=== PATIENT | male | born 1930 | race Caucasian/White ===

== ENCOUNTER 2016-04-12 17:50 | Inpatient (IN) | payer MEDICARE, OTHER ==
[2016-04-12] MEDS ORDERED: Sodium Chloride 0.9% 1,000 ML IV SCH (19:15)
--- NOTE | 2016-04-12 22:22 | EDM.PDOC ---
ED HPI GENERAL MEDICAL PROBLEM - General Chief Complaint: General Stated Complaint: MEDICAL VIA [facility] Time Seen by Provider: 04/12/16 18:05 Source of Information: Reports: Patient History Limitations: Reports: No limitations - History of Present Illness INITIAL COMMENTS - FREE TEXT/NARRATIVE: History of present illness: [85-year-old male presenting with complaints of generalized weakness that began at 4:00 this morning when he got up to go to the bathroom. He noted that he had to hang onto the wall to steady himself to get back to bed. This problem of weakness has persisted throughout the day. He was sleeping in a recliner this afternoon and his states that he awoke with a start and was tremulous for a while and then had garbled speech and some confusion and then that cleared. He now presents with generalized weakness. He feels like his blood sugars been running low but he's checked it several times and it is not. He is on insulin. He has had no fevers chills sweats cough or cold symptoms no shortness of breath or chest pain no nausea vomiting diarrhea but does occasionally have trouble with constipation] Review of systems: As per history of present illness and below otherwise all systems reviewed and negative. Past medical history: As per history of present illness and as reviewed below otherwise noncontributory. Surgical history: As per history of present illness and as reviewed below otherwise noncontributory. Social history: No reported history of drug or alcohol abuse. Family history: As per history of present illness and as reviewed below otherwise noncontributory. Physical exam: HEENT: Atraumatic, normocephalic, pupils reactive, negative for conjunctival pallor or scleral icterus, mucous membranes moist, throat clear, neck supple, nontender, trachea midline. Lungs: Some crackles in the bases with fair air exchange Heart: S1S2, regular, Abdomen: Soft, nondistended, nontender. Negative for masses or hepatosplenomegaly. Negative for costovertebral tenderness. Pelvis: Stable nontender. Genitourinary: Deferred. Rectal: Deferred. Extremities: Atraumatic, negative for cords or calf pain. Neurovascular unremarkable. Neuro: Awake, alert, oriented. Cranial nerves II through XII unremarkable. I did have the patient stand and walk and he is extremely unsteady and has a tendency to fall to the left. He reports sensation of generalized weakness like he is going to collapse when he tries to walk. Diagnostics: [CBC complete metabolic panel 2 sets of troponins BNP chest x-ray head CT 2 EKGs TSH CRP and lactic acid were all done nothing clear significance to explain his symptomatology was found. His white count is a little elevated his B. and P. is over 1000 chest x-ray shows cardiomegaly his troponins were negative his EKG may show slight J-point elevation of the v5 and v6. His head CT was unremarkable his creatinine has crept from 1.7-2.0 his BUN is 54.] Therapeutics: [IV fluids] Impression: [Generalized weakness and unsteadiness of uncertain etiology] Plan: [Dr Fox is coming in to see him] Definitive disposition and diagnosis as appropriate pending reevaluation and review of above. - Related Data Allergies Allergy/AdvReac Type Severity Reaction Status Date / Time candesartan Allergy Cannot Verified 04/12/16 17:59 Remember finasteride Allergy Cannot Verified 04/12/16 17:59 Remember lisinopril Allergy Confusion Verified 04/12/16 17:59 Kosbugd-Ayj-Wyc Reductase Allergy Chest Verified 04/12/16 17:59 Inhibitor Tightness aspirin AdvReac Bleeding Verified 04/12/16 17:59 Home Meds: Home Meds Allopurinol [Zyloprim] 300 mg PO DAILY 06/01/14 [History] Colchicine 0.6 mg PO BID 06/01/14 [History] Gabapentin [Neurontin] 400 mg PO TID 06/01/14 [History] Metoprolol Tartrate [Lopressor] 200 mg PO BEDTIME 06/01/14 [History] Omeprazole [Prilosec] 20 mg PO DAILY 06/01/14 [History] Hypromellose [Artificial Tears] 1 drop EYEBOTH QID 06/03/14 [History] Insulin Aspart [Novolog Flexpen] 10 unit SQ BID 06/03/14 [History] Insulin Glarg,Human.Rec.Analog [Lantus] 30 unit SQ BEDTIME 06/03/14 [History] Polyethylene Glycol 8000 [Polyethylene Glycol] 17 gm PO .QOD 06/03/14 [History] amLODIPine Besylate [Amlodipine Besylate] 10 mg PO BEDTIME 06/03/14 [History] traMADol [Ultram] 50 mg PO TID 06/03/14 [History] Budesonide/Formoterol [Symbicort 80-4.5 MCG] 2 puff INH BID 10/11/15 [History] Hydrocortisone [Hydrocortisone 2.5% Crm] 1 applic RECTAL BEDTIME 10/11/15 [ History] Dextrose [Glucose] 4 tab PO DAILY PRN 04/12/16 [History] Past Medical History HEENT History: Reports: Allergic rhinitis, Cataract, Impaired vision, Sinusitis Cardiovascular History: Reports: CAD, High cholesterol, Hypertension, [place], Other (see below) Other Cardiovascular History: left above the knee arterial stenosis Respiratory History: Reports: Bronchitis, recurrent, Pneumonia, recurrent, Sleep apnea, Other (see below) Other Respiratory History: chronic cough Gastrointestinal History: Reports: GERD, Other (see below) Other Gastrointestinal History: umbilical hernia Genitourinary History: Reports: Prostate disorder, Renal calculus Musculoskeletal History: Reports: Back pain, chronic, Fracture, Gout, Osteoarthritis Other Neuro History: neck fracture Endocrine/Metabolic History: Reports: Diabetes, type II, Obesity/BMI 30+ Hematologic History: Reports: Blood transfusion(s), Other (see below) Other Hematologic History: chronic leucytic leukemia, chronic lymes Oncologic (Cancer) History: Reports: Basal cell carcinoma, Other (see below) Other Oncologic History: leukemia - Past Surgical History HEENT Surgical History: Reports: Oral surgery Cardiovascular Surgical History: Reports: Coronary artery bypass GI Surgical History: Reports: Appendectomy, Colonoscopy, EGD Male Surgical History: Reports: Lithotripsy (ESWL), TURP-Transurethral resection of prostate, Other (see below) Other Male Surgeries/Procedures: kidney biopsy Social & Family History - Tobacco Use Smoking Status *Q: Never Smoker Second Hand Smoke Exposure: No - Alcohol Use Days Per Week of Alcohol Use: 0 - Recreational Drug Use Recreational Drug Use: No ED ROS GENERAL - Review of Systems Review Of Systems: ROS reveals no pertinent complaints other than HPI. ED EXAM, GENERAL - Physical Exam Exam: See Below Course - Vital Signs Last Recorded V/S: Last Vital Signs Temp 36.4 C 04/12/16 17:56 Pulse 99 04/12/16 21:35 Resp 21 H 04/12/16 21:35 BP 163/90 H 04/12/16 21:35 Pulse Ox 95 04/12/16 21:35 - Orders/Labs/Meds Orders: Active Orders 24 hr Category Date Time Status EKG Documentation Completion [RC] ASDIRECTED Care 04/12/16 18:18 Active EKG Documentation Completion [RC] ASDIRECTED Care 04/12/16 20:46 Active Chest 1V Frontal [CR] Stat Exams 04/12/16 18:48 Taken Head wo Cont [CT] Stat Exams 04/12/16 18:15 Taken Sodium Chloride 0.9% [Normal Saline] 1,000 ml Med 04/12/16 19:15 Active IV ASDIRECTED EKG 12 Lead [EK] Routine Ther 04/12/16 18:17 Ordered EKG 12 Lead [EK] Stat Ther 04/12/16 20:46 Ordered Medication Orders Sodium Chloride (Normal Saline) 1,000 mls @ 500 mls/hr IV ASDIRECTED IRVING Last Admin: 04/12/16 20:18 Dose: 500 mls/hr Labs: Laboratory Tests 04/12/16 04/12/16 04/12/16 Range/Units 18:09 18:09 19:23 WBC 12.6 H (4.5-11.0) K/uL RBC 4.20 L (4.30-5.90) M/uL Hgb 14.1 (12.0-15.0) g/dL Hct 41.4 (40.0-54.0) % MCV 99 H (80-98) fL MCH 34 H (27-31) pg MCHC 34 (32-36) % Plt Count 303 (150-400) K/uL Neut % (Auto) 73 H (36-66) % Lymph % (Auto) 21 L (24-44) % Saline % (Auto) 6 (2-6) % Eos % (Auto) 0 L (2-4) % Baso % (Auto) 0 (0-1) % ABG Hemoglobin (13.5-18.0) g/dL ABG Oxyhemoglobin % ABG Carboxyhemoglobin (0.0-1.6) % ABG Methemoglobin % VBG pH (7.350-7.450) VBG pCO2 mm/Hg VBG pO2 mm/Hg VBG HCO3 mmol/L VBG Total CO2 mmol/L VBG O2 Saturation VBG O2 Content %vol VBG Base Excess mm/L O2 Delivery Device Sodium 144 (140-148) mmol/L Potassium 5.4 H (3.6-5.2) mmol/L Chloride 109 H (100-108) mmol/L Carbon Dioxide 25 (21-32) mmol/L Anion Gap 15.4 H (5.0-14.0) mmol/L BUN 42 H (7-18) mg/dL Creatinine 2.0 H (0.8-1.3) mg/dL Est Cr Clr Drug Dosing 28.90 mL/min Estimated GFR (MDRD) 32 L (>60) Glucose 132 H (74-106) mg/dL Lactic Acid (0.4-2.0) mmol/L Calcium 8.5 (8.5-10.1) mg/dL Total Bilirubin 0.3 (0.2-1.0) mg/dL AST 23 (15-37) U/L ALT 25 (12-78) U/L Alkaline Phosphatase 72 (46-116) U/L Troponin I < 0.017 (0.000-0.056) ng/mL C-Reactive Protein (0.0-0.3) mg/dL Rhs-R-Zhokezghjha Pept 1728 H (5-450) pg/mL Total Protein 6.6 (6.4-8.2) g/dL Albumin 3.6 (3.4-5.0) g/dL Globulin 3.0 (2.3-3.5) g/dL Albumin/Globulin Ratio 1.2 (1.2-2.2) TSH, Ultra Sensitive (0.358-3.740) uIU/mL Urine Color Urine Appearance Urine pH (4.5-8.0) Ur Specific [place] (1.008-1.030) Urine Protein (NEGATIVE) mg/dL Urine Glucose (UA) (NEGATIVE) mg/dL Urine Ketones (NEGATIVE) mg/dL Urine Occult Blood (NEGATIVE) Urine Nitrite (NEGAITVE) Urine Bilirubin (NEGATIVE) Urine Urobilinogen (NORMAL) mg/dL Ur Leukocyte Esterase (NEGATIVE) Urine RBC (0-5) Urine WBC (0-5) Ur Epithelial Cells Amorphous Sediment Urine Bacteria Urine Mucus 04/12/16 04/12/16 04/12/16 Range/Units 20:01 20:01 20:02 WBC (4.5-11.0) K/uL RBC (4.30-5.90) M/uL Hgb (12.0-15.0) g/dL Hct (40.0-54.0) % MCV (80-98) fL MCH (27-31) pg MCHC (32-36) % Plt Count (150-400) K/uL Neut % (Auto) (36-66) % Lymph % (Auto) (24-44) % Saline % (Auto) (2-6) % Eos % (Auto) (2-4) % Baso % (Auto) (0-1) % ABG Hemoglobin (13.5-18.0) g/dL ABG Oxyhemoglobin % ABG Carboxyhemoglobin (0.0-1.6) % ABG Methemoglobin % VBG pH (7.350-7.450) VBG pCO2 mm/Hg VBG pO2 mm/Hg VBG HCO3 mmol/L VBG Total CO2 mmol/L VBG O2 Saturation VBG O2 Content %vol VBG Base Excess mm/L O2 Delivery Device Sodium (140-148) mmol/L Potassium (3.6-5.2) mmol/L Chloride (100-108) mmol/L Carbon Dioxide (21-32) mmol/L Anion Gap (5.0-14.0) mmol/L BUN (7-18) mg/dL Creatinine (0.8-1.3) mg/dL Est Cr Clr Drug Dosing mL/min Estimated GFR (MDRD) (>60) Glucose (74-106) mg/dL Lactic Acid 1.9 (0.4-2.0) mmol/L Calcium (8.5-10.1) mg/dL Total Bilirubin (0.2-1.0) mg/dL AST (15-37) U/L ALT (12-78) U/L Alkaline Phosphatase (46-116) U/L Troponin I (0.000-0.056) ng/mL C-Reactive Protein 0.37 H (0.0-0.3) mg/dL Lzk-N-Dvoxmwgdyki Pept (5-450) pg/mL Total Protein (6.4-8.2) g/dL Albumin (3.4-5.0) g/dL Globulin (2.3-3.5) g/dL Albumin/Globulin Ratio (1.2-2.2) TSH, Ultra Sensitive 1.678 (0.358-3.740) uIU/mL Urine Color Urine Appearance Urine pH (4.5-8.0) Ur Specific [place] (1.008-1.030) Urine Protein (NEGATIVE) mg/dL Urine Glucose (UA) (NEGATIVE) mg/dL Urine Ketones (NEGATIVE) mg/dL Urine Occult Blood (NEGATIVE) Urine Nitrite (NEGAITVE) Urine Bilirubin (NEGATIVE) Urine Urobilinogen (NORMAL) mg/dL Ur Leukocyte Esterase (NEGATIVE) Urine RBC (0-5) Urine WBC (0-5) Ur Epithelial Cells Amorphous Sediment Urine Bacteria Urine Mucus 04/12/16 04/12/16 04/12/16 Range/Units 20:20 20:46 21:40 WBC (4.5-11.0) K/uL RBC (4.30-5.90) M/uL Hgb (12.0-15.0) g/dL Hct (40.0-54.0) % MCV (80-98) fL MCH (27-31) pg MCHC (32-36) % Plt Count (150-400) K/uL Neut % (Auto) (36-66) % Lymph % (Auto) (24-44) % Saline % (Auto) (2-6) % Eos % (Auto) (2-4) % Baso % (Auto) (0-1) % ABG Hemoglobin 15.1 (13.5-18.0) g/dL ABG Oxyhemoglobin 91.6 % ABG Carboxyhemoglobin 2.6 H (0.0-1.6) % ABG Methemoglobin 0.6 % VBG pH 7.445 (7.350-7.450) VBG pCO2 29.6 mm/Hg VBG pO2 69.6 mm/Hg VBG HCO3 20.0 mmol/L VBG Total CO2 17.2 mmol/L VBG O2 Saturation 94.6 VBG O2 Content 19.4 %vol VBG Base Excess -2.4 mm/L O2 Delivery Device Room air Sodium (140-148) mmol/L Potassium (3.6-5.2) mmol/L Chloride (100-108) mmol/L Carbon Dioxide (21-32) mmol/L Anion Gap (5.0-14.0) mmol/L BUN (7-18) mg/dL Creatinine (0.8-1.3) mg/dL Est Cr Clr Drug Dosing mL/min Estimated GFR (MDRD) (>60) Glucose (74-106) mg/dL Lactic Acid (0.4-2.0) mmol/L Calcium (8.5-10.1) mg/dL Total Bilirubin (0.2-1.0) mg/dL AST (15-37) U/L ALT (12-78) U/L Alkaline Phosphatase (46-116) U/L Troponin I < 0.017 (0.000-0.056) ng/mL C-Reactive Protein (0.0-0.3) mg/dL Aod-G-Wjzfbxictbm Pept (5-450) pg/mL Total Protein (6.4-8.2) g/dL Albumin (3.4-5.0) g/dL Globulin (2.3-3.5) g/dL Albumin/Globulin Ratio (1.2-2.2) TSH, Ultra Sensitive (0.358-3.740) uIU/mL Urine Color Yellow Urine Appearance Clear Urine pH 6.5 (4.5-8.0) Ur Specific [place] 1.010 (1.008-1.030) Urine Protein 30 H (NEGATIVE) mg/dL Urine Glucose (UA) Normal (NEGATIVE) mg/dL Urine Ketones Negative (NEGATIVE) mg/dL Urine Occult Blood Negative (NEGATIVE) Urine Nitrite Negative (NEGAITVE) Urine Bilirubin Negative (NEGATIVE) Urine Urobilinogen Normal (NORMAL) mg/dL Ur Leukocyte Esterase Negative (NEGATIVE) Urine RBC 0-5 (0-5) Urine WBC 0-5 (0-5) Ur Epithelial Cells Few Amorphous Sediment Few Urine Bacteria Not seen Urine Mucus Few Meds: Medications Generic Name Dose Route Start Last Admin Trade Name Freq PRN Reason Stop Dose Admin Sodium Chloride 1,000 mls @ 500 mls/hr 04/12/16 19:15 04/12/16 20:18 Normal Saline IV 500 mls/hr ASDIRECTED IRVING Administration Departure - Departure Time of Disposition: 22:22 Disposition: Still A Patient 30 Condition: fair Clinical Impression: Generalized weakness Forms: ED Department Discharge - My Orders Last 24 Hours: My Active Orders 04/12/16 18:15 Head wo Cont [CT] Stat 04/12/16 18:17 EKG 12 Lead [EK] Routine 02/24/17 18:18 EKG Documentation Completion [RC] ASDIRECTED 04/12/16 18:48 Chest 1V Frontal [CR] Stat 04/12/16 19:15 Sodium Chloride 0.9% [Normal Saline] 1,000 ml IV ASDIRECTED 04/12/16 20:46 EKG Documentation Completion [RC] ASDIRECTED EKG 12 Lead [EK] Stat - Assessment/Plan Last 24 Hours: My Active Orders 04/12/16 18:15 Head wo Cont [CT] Stat 04/12/16 18:17 EKG 12 Lead [EK] Routine 04/12/16 18:18 EKG Documentation Completion [RC] ASDIRECTED 04/12/16 18:48 Chest 1V Frontal [CR] Stat 04/12/16 19:15 Sodium Chloride 0.9% [Normal Saline] 1,000 ml IV ASDIRECTED 04/12/16 20:46 EKG Documentation Completion [RC] ASDIRECTED EKG 12 Lead [EK] Stat
[2016-04-12] MEDS ORDERED: Ondansetron 4 MG Tab.DIS PO PRN (23:13)
[2016-04-12] MEDS ORDERED: Acetaminophen 325 MG Tab PO PRN (23:13)
[2016-04-12] MEDS ORDERED: Aspirin 81 MG Tab.Chew PO ONE (23:26)
[2016-04-13] MEDS: Insulin Aspart 100 Units/ML 3 ML Pen SUBCUT SCH ×4 (08:43→21:31)
[2016-04-13] MEDS ORDERED: Aspirin 81 MG Tab.EC PO SCH (09:00)
[2016-04-13] MEDS ORDERED: Enoxaparin 40 MG/0.4 ML Syringe SUBCUT SCH (09:00)
[2016-04-13] MEDS: Enoxaparin 30 MG/0.3 ML Syringe SUBCUT SCH (09:26)
--- NOTE | 2016-04-13 10:18 | PCM.HP ---
H&P History of Present Illness - General Date of Service: 04/12/16 Admit Problem/Dx: Admission Diagnosis/Problem Admission Diagnosis/Problem Weakness Generalized weakness and dizziness Source of Information: Patient, EMS, Family History Limitations: Reports: No limitations - History of Present Illness Initial Comments - Free Text/Narative: 85-year-old male with past medical history of hypertension on metoprolol medication, diabetes on Lantus 30 units during the nighttime 10 units Humalog with each meal, gout, peripheral neuropathy, chronic kidney disease came to the ED with the complaint of dizziness and imbalance. As per the patient, he felt dizzy and weakness in bilateral lower extremity in the morning 4 AM associated with disorganized speech. He reports that he felt dizzy when he tried to walk but denies in sitting and in laying down position. Patient says that he went to his primary care physician 4 days prior to the ER visit at that time he had dry cough and put him on prednisone for 5 days. Patient today denies any cough, congestion, upper respiratory symptoms. Denies any fever. Patient states that no recent acute headaches and no recent fall. He reports that he has generalized weakness since last 2 years which is constantly progressing. Patient denies any previous CAD, stroke history. Patient says that he is allergic to aspirin and statin medication. Patient denies any recent sick contacts, previous history of seizures and loss of consciousness. In the ED patient had CT of head which is within normal limit and BNP was elevated. Creatinine was 2.0 associated with hyperkalemia. Patient was given 1000 ml of NS with the concerns of acute renal failure. Patient baseline creatinine is 1.7. Patient has been cholchecine medication since last one year for gout. Patient denies any smoking, alcohol, illegal drug abuse history. Patient code status is DNR/DNI. Other review of systems are not significant. Onset of Symptoms: Reports: today Symptom Onset Date: 04/12/16 Symptom Onset Time: 04:00 - Related Data Allergies/Adverse Reactions: Allergies Allergy/AdvReac Type Severity Reaction Status Date / Time candesartan Allergy Cannot Verified 04/12/16 17:59 Remember finasteride Allergy Cannot Verified 04/12/16 17:59 Remember lisinopril Allergy Confusion Verified 04/12/16 17:59 Dfohnee-Prs-Aek Reductase Allergy Chest Verified 04/12/16 17:59 Inhibitor Tightness aspirin AdvReac Bleeding Verified 04/12/16 17:59 Home Medications: Home Meds Allopurinol [Zyloprim] 300 mg PO DAILY 06/01/14 [History] Colchicine 0.6 mg PO BID 06/01/14 [History] Gabapentin [Neurontin] 400 mg PO TID 06/01/14 [History] Metoprolol Tartrate [Lopressor] 200 mg PO BEDTIME 06/01/14 [History] Omeprazole [Prilosec] 20 mg PO DAILY 06/01/14 [History] Hypromellose [Artificial Tears] 1 drop EYEBOTH QID 06/03/14 [History] Insulin Aspart [Novolog Flexpen] 10 unit SQ BID 06/03/14 [History] Insulin Glarg,Human.Rec.Analog [Lantus] 30 unit SQ BEDTIME 06/03/14 [History] Polyethylene Glycol 8000 [Polyethylene Glycol] 17 gm PO .QOD 06/03/14 [History] amLODIPine Besylate [Amlodipine Besylate] 10 mg PO BEDTIME 06/03/14 [History] Budesonide/Formoterol [Symbicort 80-4.5 MCG] 2 puff INH BID 10/11/15 [History] Hydrocortisone [Hydrocortisone 2.5% Crm] 1 applic RECTAL BEDTIME 10/11/15 [ History] Dextrose [Glucose] 4 tab PO DAILY PRN 04/12/16 [History] Past Medical History HEENT History: Reports: Allergic rhinitis, Cataract, Impaired vision, Sinusitis Cardiovascular History: Reports: CAD, High cholesterol, Hypertension, TX, Other (see below) Other Cardiovascular History: left above the knee arterial stenosis; multiple TX 's Respiratory History: Reports: Bronchitis, recurrent, Pneumonia, recurrent, Sleep apnea, Other (see below) Other Respiratory History: chronic cough Gastrointestinal History: Reports: GERD, Other (see below) Other Gastrointestinal History: umbilical hernia Genitourinary History: Reports: Prostate disorder, Renal calculus Musculoskeletal History: Reports: Back pain, chronic, Fracture, Gout, Osteoarthritis Other Neuro History: neck fracture Endocrine/Metabolic History: Reports: Diabetes, type II, Obesity/BMI 30+ Hematologic History: Reports: Blood transfusion(s), Other (see below) Other Hematologic History: chronic leucytic leukemia, chronic lymes Oncologic (Cancer) History: Reports: Basal cell carcinoma, Other (see below) Other Oncologic History: leukemia - Past Surgical History HEENT Surgical History: Reports: Oral surgery Cardiovascular Surgical History: Reports: Coronary artery bypass GI Surgical History: Reports: Appendectomy, Colonoscopy, EGD Male Surgical History: Reports: Lithotripsy (ESWL), TURP-Transurethral resection of prostate, Other (see below) Other Male Surgeries/Procedures: kidney biopsy Endocrine Surgical History: Reports: None Social & Family History - Tobacco Use Smoking Status *Q: Never Smoker Second Hand Smoke Exposure: No - Caffeine Use Caffeine Use: Reports: Coffee Other Caffeine Use: small amount - Alcohol Use Days Per Week of Alcohol Use: 0 - Recreational Drug Use Recreational Drug Use: No H&P Review of Systems - Review of Systems: Review Of Systems: See Below General: Reports: weakness, fatigue, weight gain. Denies: fever, chills, night sweats, decreased appetite, weight loss HEENT: Reports: headaches, sinus congestion. Denies: hearing changes, rhinitis , post nasal drip Pulmonary: Denies: shortness of breath, wheezing, cough, sputum Cardiovascular: Denies: chest pain, palpitations, dyspnea on exertion, orthopnea , PND, edema, lightheadedness Gastrointestinal: Denies: Abdominal pain, Black stool, Constipation, Diarrhea Musculoskeletal: Denies: neck pain, joint pain, muscle pain Skin: Denies: pallor, dryness Exam - Exam Exam: See Below - Vital Signs Vital Signs: Last Vital Signs Temp 35.6 C 04/13/16 07:00 Pulse 56 L 04/13/16 07:00 Resp 18 04/13/16 07:00 BP 152/85 H 04/13/16 07:00 Pulse Ox 96 04/13/16 07:25 Weight: 113.356 kg - Exam Quality Assessment: DVT prophylaxis General: alert, oriented, cooperative HEENT: PERRLA, Hearing intact, Pupils equal, Pupils reactive Neck: supple, trachea midline Lungs: Clear to auscultation, Normal respiratory effort Cardiovascular: regular rhythm, bradycardia. No: regular rate Abdomen: normal bowel sounds, soft Extremities: normal inspection Skin: warm, dry, intact Neurological: cranial nerves intact, reflexes equal bilateral, strength equal bilateral, normal speech, normal tone, sensation intact, Babinski. No: focal deficit, hyperreflexia, hyporeflexia Neuro Extensive - Mental Status: alert, oriented x3, normal mood/affect - Patient Data Lab Results last 24 hrs: Laboratory Results - last 24 hr 04/12/16 04/13/16 04/13/16 Range/Units 23:26 00:25 07:00 Magnesium 2.1 (1.8-2.4) mg/dL Troponin I < 0.017 (0.000-0.056) ng/mL Triglycerides 127 (15-150) mg/dL Cholesterol 194 (0-200) mg/dL LDL Cholesterol Direct 128 H (0-100) mg/dL HDL Cholesterol 38 L (40-60) mg/dL Urine Opiates Screen Negative (NEGATIVE) Ur Oxycodone Screen Negative (NEGATIVE) Urine Methadone Screen Negative (NEGATIVE) Ur Propoxyphene Screen Negative (NEGATIVE) Ur Barbiturates Screen Negative (NEGATIVE) Ur Tricyclics Screen Negative (NEGATIVE) Ur Phencyclidine Scrn Negative (NEGATIVE) Ur Amphetamine Screen Negative (NEGATIVE) U Methamphetamines Scrn Negative (NEGATIVE) Urine MDMA Screen Negative (NEGATIVE) U Benzodiazepines Scrn Negative (NEGATIVE) U Cocaine Metab Screen Negative (NEGATIVE) U Marijuana (THC) Screen Negative (NEGATIVE) Result Diagrams: 04/12/16 18:09 04/12/16 18:09 *Q Meaningful Use (ADM) - VTE *Q VTE Criteria *Q: - Stroke *Q Stroke Criteria *Q: - AMI *Q AMI Criteria *Q: - Problem List (1) Generalized weakness SNOMED Code(s): 75811688 ICD Code: R53.1 - WEAKNESS Status: Acute Priority: High Current Visit: Yes (2) Diabetes SNOMED Code(s): 11645513 ICD Code: E11.9 - TYPE 2 DIABETES MELLITUS WITHOUT COMPLICATIONS Status: Acute Priority: High Current Visit: Yes Qualifiers: Diabetes mellitus type: type 2 Diabetes mellitus complication status: with kidney complications Diabetes mellitus complication detail: with chronic kidney disease (3) C2 cervical fracture SNOMED Code(s): 996542628 ICD Code: S12.100A - UNSP DISP FX OF SECOND CERVICAL VERTEBRA, INIT FOR CLOS FX Status: Resolved Priority: Medium Current Visit: No (4) Hypertension SNOMED Code(s): 52102949 ICD Code: I10 - ESSENTIAL (PRIMARY) HYPERTENSION Status: Acute Priority: High Current Visit: Yes Qualifiers: Hypertension type: essential hypertension Qualified Code(s): I10 - Essential (primary) hypertension (5) Gout SNOMED Code(s): 24266133 ICD Code: M10.9 - GOUT, UNSPECIFIED Status: Acute Priority: High Current Visit: No (6) Hyperlipidemia SNOMED Code(s): 90916653 ICD Code: E78.5 - HYPERLIPIDEMIA, UNSPECIFIED Status: Acute Priority: High Current Visit: Yes (7) Speech disturbance SNOMED Code(s): 12836179, 86882783, 313599266 ICD Code: R47.9 - UNSPECIFIED SPEECH DISTURBANCES Status: Acute Priority : High Current Visit: Yes (8) GERD (gastroesophageal reflux disease) SNOMED Code(s): 618121214 ICD Code: K21.9 - GASTRO-ESOPHAGEAL REFLUX DISEASE WITHOUT ESOPHAGITIS Status: Acute Current Visit: Yes (9) Bradycardia SNOMED Code(s): 58132848 ICD Code: R00.1 - BRADYCARDIA, UNSPECIFIED Status: Acute Current Visit: Yes Problem List Initiated/Reviewed/Updated: Yes Orders Last 24hrs: Active Orders 24 hr Category Date Time Status Cardiac Monitoring [RC] .As Directed Care 04/12/16 23:26 Active Nursing Bedside Swallow Screen [RC] ASDIRECTED Care 04/12/16 23:26 Inactive Echo Comp wo Cont [US] Routine Exams 04/12/16 23:26 Ordered VL Duplex Carotid Comp [US] Routine Exams 04/12/16 23:26 Ordered GLUCOSE POC LAB TO COLLECT [POC] QIDACANDBED Lab 04/13/16 11:30 Ordered GLUCOSE POC LAB TO COLLECT [POC] QIDACANDBED Lab 04/13/16 16:30 Ordered GLUCOSE POC LAB TO COLLECT [POC] QIDACANDBED Lab 04/13/16 21:00 Ordered Enoxaparin [Lovenox] Med 04/13/16 09:00 Active 30 mg SUBCUT DAILY Insulin Aspart [NovoLOG] Med 04/13/16 07:00 Active See Protocol SUBCUT QIDACANDBED Insulin Detemir [Levemir] Med 04/13/16 21:00 Active 15 unit SUBCUT BEDTIME EKG 12 Lead [EK] Routine Ther 04/13/16 07:00 Ordered Medication Orders Acetaminophen (Tylenol) 650 mg PO Q4H PRN PRN Reason: Pain (Mild 1-3)/fever Enoxaparin Sodium (Lovenox) 30 mg SUBCUT DAILY [facility] Last Admin: 04/13/16 09:26 Dose: 30 mg Insulin Aspart (Novolog) 0 unit SUBCUT QIDACANDBED [facility] PRN Reason: Protocol Last Admin: 04/13/16 08:43 Dose: Not Given Insulin Detemir (Levemir) 15 unit SUBCUT BEDTIME [facility] Ondansetron HCl (Zofran Odt) 4 mg PO Q8H PRN PRN Reason: Nausea able to take PO Senna/Docusate Sodium (Senna Plus) 1 tab PO BID PRN PRN Reason: Constipation Assessment/Plan Comment:: (1) Generalized weakness (7) Speech disturbance Unknown etiology. Patient had speech disturbances in the morning associated with dizziness. Patient CT head is within normal limit. Cannot rule out transient ischemic attack/stroke. troponin's are within normal limit will repeat troponin the morning. Gave aspirin 325 mg one time. Patient has continues bradycardia with 40-50s. Will hold metoprolol medication. Will consider starting CATRACHITO inhibitors if he is not allergic. Will get lipid panel. Ordered echocardiography and ultrasound of carotids. Continue tele (2) Diabetes Recent HBA 1C was 7.8. Will start Lantus 15 units and sliding scale insulin. AC and HS (3) C2 cervical fracture Patient had fallen from ladder in 2011 and had C2 vertebral fracture no acute changes are noted during history and physical examination will monitor (9) Bradycardia (4) Hypertension Will hold metoprolol due to symptomatic Bradycardia (5) Gout Patient has been on Colchicine since last 1 year. Will hold the medication due to acute on chronic renal failure. (6) Hyperlipidemia Will get lipid panel (8) GERD (gastroesophageal reflux disease) Will add pantoprazole 40 mg daily G.I. prophylaxis - Pantoprazole 40 mg daily DVT prophylaxis - Lovenox 40 mg sub Q daily Diet - renal, diabetic diet Code status: DNR/DNI
[2016-04-13] MEDS ORDERED: Sodium Phosphate,Monobasic/Sodium Phosphate,Dibasic Enema 133 ML Bottle RECTAL PRN (11:33)
--- NOTE | 2016-04-13 11:33 | PCM.PN ---
- General Info Date of Service: 04/13/16 Functional Status: Reports: urinating - Review of Systems General: Reports: no symptoms HEENT: Reports: other (Vertigo) Pulmonary: Reports: no symptoms Cardiovascular: Reports: no symptoms Gastrointestinal: Reports: No symptoms Systems Review Comment:: This patient is an 85-year-old gentleman who was admitted through the emergency room last night with episodes of imbalance. He's had these spells now over the past 6-8 months occurring on an intermittent basis. Yesterday had a most continuous symptoms throughout the day associated with some mild nausea. Symptoms would improve if he were able to sit still or lie down but worsened with any movement. He does have a known history of coronary artery disease and denies significant shortness of breath or chest pain, serial troponin levels have been within normal range. - Patient Data Vitals - most recent: Last Vital Signs Temp 98.4 F 04/13/16 11:20 Pulse 56 L 04/13/16 07:00 Resp 18 04/13/16 07:00 BP 152/85 H 04/13/16 07:00 Pulse Ox 97 04/13/16 11:20 Orthostatic Blood Pressure [] 143/79 Weight - most recent: 249 lb 14.515 oz I&O - last 24 hours: Intake & Output 04/12/16 04/13/16 04/13/16 22:59 06:59 14:59 Intake Total 360 480 Output Total 850 Balance -490 480 Lab Results last 24 hrs: Laboratory Results - last 24 hr 04/12/16 04/13/16 04/13/16 Range/Units 23:26 00:25 07:00 Magnesium 2.1 (1.8-2.4) mg/dL Troponin I < 0.017 (0.000-0.056) ng/mL Triglycerides 127 (15-150) mg/dL Cholesterol 194 (0-200) mg/dL LDL Cholesterol Direct 128 H (0-100) mg/dL HDL Cholesterol 38 L (40-60) mg/dL Urine Opiates Screen Negative (NEGATIVE) Ur Oxycodone Screen Negative (NEGATIVE) Urine Methadone Screen Negative (NEGATIVE) Ur Propoxyphene Screen Negative (NEGATIVE) Ur Barbiturates Screen Negative (NEGATIVE) Ur Tricyclics Screen Negative (NEGATIVE) Ur Phencyclidine Scrn Negative (NEGATIVE) Ur Amphetamine Screen Negative (NEGATIVE) U Methamphetamines Scrn Negative (NEGATIVE) Urine MDMA Screen Negative (NEGATIVE) U Benzodiazepines Scrn Negative (NEGATIVE) U Cocaine Metab Screen Negative (NEGATIVE) U Marijuana (THC) Screen Negative (NEGATIVE) Med Orders - Current: Current Medications Acetaminophen (Tylenol) 650 mg PO Q4H PRN PRN Reason: Pain (Mild 1-3)/fever Enoxaparin Sodium (Lovenox) 30 mg SUBCUT DAILY [facility] Last Admin: 04/13/16 09:26 Dose: 30 mg Insulin Aspart (Novolog) 0 unit SUBCUT QIDACANDBED [facility] PRN Reason: Protocol Last Admin: 04/13/16 08:43 Dose: Not Given Insulin Detemir (Levemir) 15 unit SUBCUT BEDTIME [facility] Ondansetron HCl (Zofran Odt) 4 mg PO Q8H PRN PRN Reason: Nausea able to take PO Senna/Docusate Sodium (Senna Plus) 1 tab PO BID PRN PRN Reason: Constipation Discontinued Medications Aspirin (Aspirin) 324 mg PO ONETIME ONE Stop: 04/12/16 23:27 Last Admin: 04/13/16 01:01 Dose: 324 mg Aspirin (Halfprin) 81 mg PO DAILY [facility] Sodium Chloride (Normal Saline) 1,000 mls @ 500 mls/hr IV ASDIRECTED [facility] Last Admin: 04/12/16 20:18 Dose: 500 mls/hr Insulin Detemir (Levemir) 15 unit SUBCUT BEDTIME [facility] Last Admin: 04/13/16 01:02 Dose: 15 units - Exam Quality Assessment: DVT prophylaxis General: alert, oriented, cooperative, mild distress HEENT: Other (Hallpike maneuver is positive on the left) Lungs: Clear to auscultation, Normal respiratory effort Cardiovascular: regular rate, regular rhythm, no murmurs Abdomen: bowel sounds present, soft, no tenderness, no distension Extremities: no edema Skin: warm, dry, intact - Problem List Review Problem List Initiated/Reviewed/Updated: Yes - My Orders Last 24 Hours: My Active Orders 04/13/16 11:17 Orthostatic Vital Signs [RC] Q6HR PT Evaluation and Treatment [CONS] Routine 04/14/16 05:00 BASIC METABOLIC PANEL,BMP [CHEM] Timed CBC WITH AUTO DIFF [HEME] Timed 04/15/16 08:00 Echo Comp wo Cont [US] Routine - Plan Plan:: ASSESSMENT AND PLAN POSITIONAL VERTIGO-most likely explanation for current symptoms. Hallpike maneuvers are positive on the left with reproduction of symptoms. -As though therapy consult -Outpatient referral to ENT -Continue cardiac monitoring to rule out potential dysrhythmia as contributing to current symptoms -Orthostatic vital signs BRADYCARDIA-widely secondary to current beta sher -Decrease dose of beta sher CORONARY ARTERY DISEASE-currently asymptomatic, serial troponin levels normal TYPE 2 DIABETES MELLITUS -4 times a day glucometers -Continue current dose of long-acting insulin -Dose sliding scale NovoLog CHRONIC KIDNEY DISEASE STAGE III -Closely monitor urine output and renal function during hospital stay MAINTENANCE ISSUES G.I. prophylaxis - Pantoprazole 40 mg daily DVT prophylaxis - Lovenox 40 mg sub Q daily Diet - renal, diabetic diet CODE STATUS: DNR/DNI ADMISSION STATUS-he has been appropriately admitted to inpatient status, expect at least a 2 night hospital stay for evaluation and management of current symptoms as outlined above. At the time of this admission I do not reasonably expected evaluation and management of his problems will require more than a 96 hour hospital stay. PRIMARY CARE PROVIDER-[facility]
[2016-04-13] MEDS ORDERED: Bisacodyl 10 MG Supp RECTAL ONE (12:00)
[2016-04-13] MEDS: Polyethylene Glycol 3350 Powder 17 GM Packet PO SCH ×2 (13:05→21:37)
[2016-04-13] MEDS: Gabapentin 400 MG Cap PO SCH ×2 (13:06→21:37)
[2016-04-13] MEDS ORDERED: amLODIPine 10 MG Tab PO SCH (21:00)
[2016-04-13] MEDS ORDERED: Insulin Detemir 100 Units/ML 3 ML Pen SUBCUT SCH (21:00)
[2016-04-13] MEDS: Metoprolol Tartrate 50 MG Tab PO SCH (21:34)
[2016-04-13] MEDS: Formoterol/Mometasone 100-5 MCG 8.8 GM Inhaler IH SCH (21:36)
[2016-04-14] MEDS: Insulin Aspart 100 Units/ML 3 ML Pen SUBCUT SCH ×2 (07:47→12:45)
[2016-04-14] MEDS: Formoterol/Mometasone 100-5 MCG 8.8 GM Inhaler IH SCH (08:26)
[2016-04-14] MEDS: Metoprolol Tartrate 50 MG Tab PO SCH (08:27)
[2016-04-14] MEDS: Gabapentin 400 MG Cap PO SCH ×2 (08:28→14:05)
[2016-04-14] MEDS: Enoxaparin 30 MG/0.3 ML Syringe SUBCUT SCH (08:28)
[2016-04-14] MEDS: Polyethylene Glycol 3350 Powder 17 GM Packet PO SCH (08:29)
--- NOTE | 2016-04-14 12:22 | PCM.DCSUM1 ---
Discharge Summary - Hospital Course Brief History: This patient is an 85-year-old gentleman who was admitted through the emergency department with imbalance and falling secondary to positional vertigo. - Discharge Data Discharge Date: 04/14/16 Discharge Disposition: Home, Self-Care 01 Condition: Fair - Discharge Diagnosis/Problem(s) (1) Bradycardia SNOMED Code(s): 07232513 ICD Code: R00.1 - BRADYCARDIA, UNSPECIFIED Status: Acute Current Visit: Yes (2) Positional vertigo of left ear SNOMED Code(s): 112143903 ICD Code: H81.312 - AURAL VERTIGO, LEFT EAR Status: Acute Current Visit: Yes (3) Type 2 diabetes mellitus SNOMED Code(s): 43820849 ICD Code: E11.9 - TYPE 2 DIABETES MELLITUS WITHOUT COMPLICATIONS Status: Acute Current Visit: Yes (4) CKD (chronic kidney disease) stage 3, GFR 30-59 ml/min SNOMED Code(s): 402076224 ICD Code: N18.3 - CHRONIC KIDNEY DISEASE, STAGE 3 (MODERATE) Status: Acute Current Visit: Yes - Patient Summary/Data Consults: Consultations 04/13/16 11:17 PT Evaluation and Treatment [CONS] Routine Please Evaluate and Treat. PT Reason for Consult: Vertigo This query below is only for informational purposes and is not editable. Admission Diagnosis/Problem: Weakness Hospital Course: Patient is an 85-year-old gentleman who been experiencing difficulty with imbalance on an intermittent basis over the past several months. Over the past few days prior to admission he had more difficulty especially in the day prior to admission and on the morning of admission had more significant symptoms. On evaluation emergency room department CT scan of the head was unremarkable, he was noted to be bradycardic with heart rates into the 40s and 50s. He was admitted and placed on cardiac monitoring and other than some episodes of bradycardia there were no significant dysrhythmias. Orthostatic vital signs were obtained and showed no significant drop in pressure with change in position. Hallpike maneuvers were obtained in the morning after admission and were positive on the left consistent with positional vertigo. He was seen and evaluated by physical therapy concerning his vertigo. His dose of metoprolol was decreased 100 mg twice daily to 50 mg twice daily and the bradycardia resolved. He will be discharged home on a lower dose of medication and a followup appointment will be scheduled with Dr. Carbajal within one week. Activity will be as tolerated and he will resume his usual medication. - Patient Instructions Diet: Low Sodium, Diabetic Diet Activity: As Tolerated Other/Special Instructions: DANDRE w/ Dr. Kurtz w/in 1 week - Discharge Plan Prescriptions/Med Rec: Metoprolol Tartrate [Lopressor] 50 mg PO BID #60 tablet Home Medications: Home Meds Allopurinol [Zyloprim] 300 mg PO DAILY 06/01/14 [History] Colchicine 0.6 mg PO BID 06/01/14 [History] Gabapentin [Neurontin] 400 mg PO TID 06/01/14 [History] Omeprazole [Prilosec] 20 mg PO DAILY 06/01/14 [History] Hypromellose [Artificial Tears] 1 drop EYEBOTH QID 06/03/14 [History] Insulin Aspart [Novolog Flexpen] 10 unit SQ BID 06/03/14 [History] Insulin Glarg,Human.Rec.Analog [Lantus] 30 unit SQ BEDTIME 06/03/14 [History] Polyethylene Glycol 8000 [Polyethylene Glycol] 17 gm PO .QOD 06/03/14 [History] amLODIPine Besylate [Amlodipine Besylate] 10 mg PO BEDTIME 06/03/14 [History] Budesonide/Formoterol [Symbicort 80-4.5 MCG] 2 puff INH BID 10/11/15 [History] Hydrocortisone [Hydrocortisone 2.5% Crm] 1 applic RECTAL BEDTIME 10/11/15 [ History] Dextrose [Glucose] 4 tab PO DAILY PRN 04/12/16 [History] Metoprolol Tartrate [Lopressor] 50 mg PO BID #60 tablet 04/14/16 [Rx] Referrals: Mario Kurtz MD [Primary Care Provider] - - Patient Data Vitals - Most Recent: Last Vital Signs Temp 99.3 F 04/14/16 07:00 Pulse 68 04/14/16 08:27 Resp 20 04/14/16 07:00 BP 131/83 04/14/16 08:27 Pulse Ox 95 04/14/16 07:33 Orthostatic Blood Pressure [ 128/75 Standing] Orthostatic Blood Pressure [ 115/87 Sitting] Orthostatic Blood Pressure [ 131/83 Supine] Weight - Most Recent: 249 lb 14.515 oz I&O - Last 24 hours: Intake & Output 04/13/16 04/14/16 04/14/16 22:59 06:59 14:59 Intake Total 120 300 Output Total 1300 Balance 120 -1300 300 Lab Results - Last 24 hrs: Laboratory Results - last 24 hr 04/14/16 04/14/16 Range/Units 05:55 05:55 WBC 13.2 H (4.5-11.0) K/uL RBC 4.35 (4.30-5.90) M/uL Hgb 14.9 (12.0-15.0) g/dL Hct 42.2 (40.0-54.0) % MCV 97 (80-98) fL MCH 34 H (27-31) pg MCHC 35 (32-36) % Plt Count 247 (150-400) K/uL Neut % (Auto) 47 (36-66) % Lymph % (Auto) 38 (24-44) % [place] % (Auto) 12 H (2-6) % Eos % (Auto) 3 (2-4) % Baso % (Auto) 0 (0-1) % Sodium 142 (140-148) mmol/L Potassium 5.0 (3.6-5.2) mmol/L Chloride 108 (100-108) mmol/L Carbon Dioxide 24 (21-32) mmol/L Anion Gap 10.2 (5.0-14.0) mmol/L BUN 38 H (7-18) mg/dL Creatinine 1.7 H (0.8-1.3) mg/dL Est Cr Clr Drug Dosing 34.00 mL/min Estimated GFR (MDRD) 39 L (>60) Glucose 68 L (74-106) mg/dL Calcium 8.1 L (8.5-10.1) mg/dL Med Orders - Current: Current Medications Acetaminophen (Tylenol) 650 mg PO Q4H PRN PRN Reason: Pain (Mild 1-3)/fever Amlodipine Besylate (Norvasc) 10 mg PO BEDTIME [facility] Last Admin: 04/13/16 21:37 Dose: 10 mg Enoxaparin Sodium (Lovenox) 40 mg SUBCUT DAILY [facility] Gabapentin (Neurontin) 400 mg PO TID [facility] Last Admin: 04/14/16 08:28 Dose: 400 mg Insulin Aspart (Novolog) 0 unit SUBCUT QIDACANDBED [facility] PRN Reason: Protocol Last Admin: 04/14/16 07:47 Dose: 1 unit Insulin Detemir (Levemir) 15 unit SUBCUT BEDTIME [facility] Last Admin: 04/13/16 21:32 Dose: 15 units Metoprolol Tartrate (Lopressor) 50 mg PO BID [facility] Last Admin: 04/14/16 08:27 Dose: 50 mg Mometasone Furoate/Formoterol Fumar (Dulera 100-5 Mcg) 2 puff IH BIDRT [facility] Last Admin: 04/14/16 08:26 Dose: 2 puff Ondansetron HCl (Zofran Odt) 4 mg PO Q8H PRN PRN Reason: Nausea able to take PO Polyethylene Glycol (Miralax) 17 gm PO BID [facility] Last Admin: 04/14/16 08:29 Dose: Not Given Senna/Docusate Sodium (Senna Plus) 1 tab PO BID PRN PRN Reason: Constipation Sodium Biphosphate/Sodium Phosphate (Fleet Enema) 133 ml RECTAL ONETIME PRN PRN Reason: Constipation Discontinued Medications Aspirin (Aspirin) 324 mg PO ONETIME ONE Stop: 04/12/16 23:27 Last Admin: 04/13/16 01:01 Dose: 324 mg Aspirin (Halfprin) 81 mg PO DAILY [facility] Bisacodyl (Dulcolax) 10 mg RECTAL ONETIME ONE Stop: 04/13/16 12:01 Last Admin: 04/13/16 14:19 Dose: 10 mg Enoxaparin Sodium (Lovenox) 30 mg SUBCUT DAILY [facility] Last Admin: 04/14/16 08:28 Dose: 30 mg Sodium Chloride (Normal Saline) 1,000 mls @ 500 mls/hr IV ASDIRECTED [facility] Last Admin: 04/12/16 20:18 Dose: 500 mls/hr Insulin Detemir (Levemir) 15 unit SUBCUT BEDTIME [facility] Last Admin: 04/13/16 01:02 Dose: 15 units *Q Meaningful Use (DIS) - VTE *Q VTE Criteria *Q: - Stroke *Q Stroke Criteria *Q: - AMI *Q AMI Criteria *Q:
[2016-04-14 12:23] VITALS: BP 130/74
[2016-04-15] MEDS ORDERED: Enoxaparin 40 MG/0.4 ML Syringe SUBCUT SCH (09:00)
--- NOTE | 2016-04-15 09:20 | CR ---
Chest 1V Frontal HISTORY: Lightheaded, elevated white blood count. COMPARISON: 03/21/2010 FINDINGS: Mild stable cardiomegaly. There is hyperinflation. Slight perihilar interstitial prominenc e which could represent some mild edema. No dense infiltrate or effusion.
== END 2016-04-14 14:50 | disposition home or self-care (01) | DRG 149 ==
LOC: JP.ED 17:50 → JP.MS 23:13
PROVIDERS: ADMIT Family Medicine; ATTEND Family Medicine
DX: H81.12 Benign paroxysmal vertigo, left ear (principal); E11.21 Type 2 diabetes mellitus with diabetic nephropathy; E11.22 Type 2 diabetes mellitus with diabetic chronic kidney disease; I12.9 Hypertensive chronic kidney disease with stage 1 through stage 4 chronic kidney disease, or unspecified chronic kidney disease; N18.3 Chronic kidney disease, stage 3 (moderate); Z66 Do not resuscitate; R00.1 Bradycardia, unspecified; R47.9 Unspecified speech disturbances; R53.1 Weakness; R26.89 Other abnormalities of gait and mobility; T44.7X5A Adverse effect of beta-adrenoreceptor antagonists, initial encounter; Y92.009 Unspecified place in unspecified non-institutional (private) residence as the place of occurrence of the external cause; E78.5 Hyperlipidemia, unspecified; Z95.1 Presence of aortocoronary bypass graft; M19.90 Unspecified osteoarthritis, unspecified site; M10.9 Gout, unspecified; K21.9 Gastro-esophageal reflux disease without esophagitis; G47.30 Sleep apnea, unspecified; I25.2 Old myocardial infarction; I25.10 Atherosclerotic heart disease of native coronary artery without angina pectoris; H54.7 Unspecified visual loss; Z87.01 Personal history of pneumonia (recurrent); Z85.828 Personal history of other malignant neoplasm of skin; Z85.6 Personal history of leukemia; Z88.6 Allergy status to analgesic agent; Z88.8 Allergy status to other drugs, medicaments and biological substances; Z79.4 Long term (current) use of insulin
CPT/HCPCS: 36415; 70450; 71010 ×2; 80053; 81001; 82803; 83605; 83880; 84443; 84484 ×2; 85025; 86140; 93005 ×2; 96360; 96361; 99285; J7040; 80048; 80061; 80305; 82962; 83735; 93010; 94762; 95992-GP; 97161-GP; 99283; A9270-GY; J1650

== ENCOUNTER 2016-08-20 22:50 | Observation (INO) | payer MEDICARE, OTHER ==
--- NOTE | 2016-08-20 23:17 | EDM.PDOC ---
[id number] 4d CHEST PAINS Time Seen by Provider: 08/20/16 23:00 Source of Information: Reports: Patient, EMS, Family History Limitations: Reports: No Limitations - History of Present Illness INITIAL COMMENTS - FREE TEXT/NARRATIVE: 85-year-old male with known coronary artery disease has had a cough and low- grade fever for the past couple of days and tonight started developing some substernal chest pain radiating to his back and upper abdominal discomfort. He has been nauseated all day. Also some moderate chills, and his cough is becoming more productive. No radiation of pain to the neck or arms, no significant shortness of breath or diaphoresis. EKG done by EMS was nonspecific , nitroglycerin 2 was given without relief and aspirin was given. An EKG was repeated on arrival in the emergency room and compared to an EKG done 4 months ago and looked very similar. Onset: Gradual (Over the past 5-6 hours) Severity: Mild Improves with: Reports: None Worsens with: Reports: Breathing, Movement Associated Symptoms: Reports: Chest Pain, Cough, Fever/Chills. Denies: Diaphoresis, Nausea/Vomiting, Shortness of Breath, Weakness Treatments STEWARD/STEWARDESS THIRD CLASS: Reports: Aspirin, Nitroglycerin (2) chest wall Pain Score (Numeric/FACES): 8 - Related Data Allergies Allergy/AdvReac Type Severity Reaction Status Date / Time candesartan Allergy Cannot Verified 08/20/16 23:01 Remember finasteride Allergy Cannot Verified 08/20/16 23:01 Remember lisinopril Allergy Confusion Verified 08/20/16 23:01 [id number]-[id number] Reductase Allergy Chest Verified 08/20/16 23:01 Inhibitor Tightness aspirin AdvReac Bleeding Verified 08/20/16 23:01 Home Meds: Home Meds Allopurinol [Zyloprim] 300 mg PO DAILY 06/01/14 [History] Colchicine 0.6 mg PO BID PRN 06/01/14 [History] Gabapentin [Neurontin] 400 mg PO TID 06/01/14 [History] Omeprazole [Prilosec] 20 mg PO DAILY 06/01/14 [History] Hypromellose [Artificial Tears] 1 drop EYEBOTH QID 06/03/14 [History] Insulin Aspart [Novolog Flexpen] 10 unit SQ BID 06/03/14 [History] Insulin Glarg,Human.Rec.Analog [Lantus] 30 unit SQ BEDTIME 06/03/14 [History] Polyethylene Glycol 8000 [Polyethylene Glycol] 17 gm PO DAILY 06/03/14 [History] amLODIPine Besylate [Amlodipine Besylate] 10 mg PO BEDTIME 06/03/14 [History] Budesonide/Formoterol [Symbicort 80-4.5 MCG] 2 puff INH DAILY 10/11/15 [History] Hydrocortisone [Hydrocortisone 2.5% Crm] 1 applic RECTAL BEDTIME 10/11/15 [ History] Dextrose [Glucose] 4 tab PO DAILY PRN 04/12/16 [History] Metoprolol Succinate 100 mg PO BID 08/20/16 [History] Tiotropium [Spiriva] 18 mcg INH DAILY 08/20/16 [History] Past Medical History HEENT History: Reports: Allergic Rhinitis, Cataract, Impaired Vision, Sinusitis Cardiovascular History: Reports: Bypass, CAD, High Cholesterol, Hypertension, AR Other Cardiovascular History: left above the knee arterial stenosis; multiple AR 's Respiratory History: Reports: Bronchitis, Recurrent, Pneumonia, Recurrent, Sleep Apnea Other Respiratory History: chronic cough Gastrointestinal History: Reports: GERD Other Gastrointestinal History: umbilical hernia Genitourinary History: Reports: Prostate Disorder, Renal Calculus Musculoskeletal History: Reports: Back Pain, Chronic, Fracture, Gout, Osteoarthritis Other Neuro History: neck fracture Endocrine/Metabolic History: Reports: Diabetes, Type II, Obesity/BMI 30+ Hematologic History: Reports: Blood Transfusion(s) Other Hematologic History: chronic leucytic leukemia, chronic lymes Oncologic (Cancer) History: Reports: Basal Cell Carcinoma, Leukemia, Other (See Below) Other Oncologic History: CLL - Past Surgical History HEENT Surgical History: Reports: Oral Surgery Cardiovascular Surgical History: Reports: Coronary Artery Bypass GI Surgical History: Reports: Appendectomy, Colonoscopy, Hernia, Abdominal Male Surgical History: Reports: Lithotripsy (ESWL), TURP-Transurethral Resection of Prostate, Other (See Below) Other Male Surgeries/Procedures: bladder surgery Social & Family History - Tobacco Use Smoking Status *Q: Never Smoker Second Hand Smoke Exposure: No - Caffeine Use Caffeine Use: Reports: Coffee Other Caffeine Use: small amount - Alcohol Use Days Per Week of Alcohol Use: 0 - Recreational Drug Use Recreational Drug Use: No ED ROS GENERAL - Review of Systems Review Of Systems: See Below Constitutional: Reports: Fever, Chills, Malaise HEENT: Reports: No Symptoms Respiratory: Reports: Pleuritic Chest Pain, Cough, Sputum Cardiovascular: Reports: Chest Pain, Other (Some chronic symmetric lower extremity edema). Denies: Palpitations GI/Abdominal: Reports: Abdominal Pain (Upper abdomen). Denies: Nausea : Reports: No Symptoms Skin: Reports: Bruising (Bruises easily) ED EXAM, GENERAL - Physical Exam Exam: See Below Exam Limited By: No Limitations General Appearance: Alert, No Apparent Distress Eye Exam: Bilateral Eye: EOMI, Normal Inspection Respiratory/Chest: No Respiratory Distress, Wheezing (a few expiratory wheezes are heard, no rales or rhonchi) Cardiovascular: Regular Rate, Rhythm GI/Abdominal: Soft, Tender (Patient is fairly tender with a small amount of guarding across the right upper quadrant and epigastric area) Extremities: Pedal Edema (Trace symmetric lower extremity edema is present, he also has venous stasis changes of the skin) Neurological: Alert, Oriented, No Motor/Sensory Deficits Psychiatric: Normal Affect, Normal Mood Skin Exam: Warm, Dry EKG INTERPRETATION Rhythm: NSR Marrero: LAD-Left Marrero Deviation ST-T: Elevated (Questionable elevation in the inferior leads very similar to previous EKGs) Course - Vital Signs Last Recorded V/S: Last Vital Signs Temp 99.2 F 08/21/16 02:16 Pulse 77 08/21/16 02:16 Resp 20 08/21/16 02:16 BP 151/83 H 08/21/16 02:16 Pulse Ox 93 L 08/21/16 03:07 - Orders/Labs/Meds Orders: Active Orders 24 hr Category Date Time Status EKG Documentation Completion [RC] ASDIRECTED Care 08/20/16 23:12 Active Abdomen Ltd [US] Stat Exams 08/21/16 00:15 Taken Chest 1V Frontal [CR] Stat Exams 08/20/16 23:17 Taken EKG 12 Lead [EK] Routine Ther 08/20/16 23:12 Ordered Medication Orders Hydromorphone HCl (Dilaudid Hoop Driving Machine Operator Helper 15 Mg In Ns 30 Ml) 0 mg IV ASDIRECTED PRN; Protocol PRN Reason: Pain Last Admin: 08/21/16 02:46 Dose: 15 mg Ampicillin Sodium/Sulbactam (Sodium 1.5 gm/ Sodium Chloride) 50 mls @ 100 mls/ hr IV Q6H [facility] Last Admin: 08/21/16 02:51 Dose: 100 mls/hr Sodium Chloride (Normal Saline) 1,000 mls @ 200 mls/hr IV ASDIRECTED [facility] Last Admin: 08/21/16 02:36 Dose: 200 mls/hr Naloxone HCl (Narcan) 0.4 mg IVPUSH Q2M PRN PRN Reason: Respiratory Distress Labs: Laboratory Tests 08/20/16 08/20/16 08/20/16 Range/Units 23:12 23:27 23:27 WBC 13.3 H (4.5-11.0) K/uL RBC 4.27 L (4.30-5.90) M/uL Hgb 14.2 (12.0-15.0) g/dL Hct 42.3 (40.0-54.0) % MCV 99 H (80-98) fL MCH 33 H (27-31) pg MCHC 34 (32-36) % Plt Count 263 (150-400) K/uL Neut % (Auto) 63 (36-66) % Lymph % (Auto) 26 (24-44) % [place] % (Auto) 10 H (2-6) % Eos % (Auto) 1 L (2-4) % Baso % (Auto) 0 (0-1) % Sodium 138 L (140-148) mmol/L Potassium 4.4 (3.6-5.2) mmol/L Chloride 105 (100-108) mmol/L Carbon Dioxide 22 (21-32) mmol/L Anion Gap 15.4 H (5.0-14.0) mmol/L BUN 35 H (7-18) mg/dL Creatinine 2.0 H (0.8-1.3) mg/dL Est Cr Clr Drug Dosing 28.90 mL/min Estimated GFR (MDRD) 32 L (>60) Glucose 207 H (74-106) mg/dL Calcium 8.6 (8.5-10.1) mg/dL Total Bilirubin 1.2 H D (0.2-1.0) mg/dL AST 122 H D (15-37) U/L ALT 80 H (12-78) U/L Alkaline Phosphatase 198 H D (46-116) U/L Troponin I < 0.017 (0.000-0.056) ng/mL Total Protein 6.7 (6.4-8.2) g/dL Albumin 3.1 L (3.4-5.0) g/dL Globulin 3.6 H (2.3-3.5) g/dL Albumin/Globulin Ratio 0.9 L (1.2-2.2) Amylase (25-115) U/L Lipase (73-393) U/L 08/21/16 Range/Units 00:15 WBC (4.5-11.0) K/uL RBC (4.30-5.90) M/uL Hgb (12.0-15.0) g/dL Hct (40.0-54.0) % MCV (80-98) fL MCH (27-31) pg MCHC (32-36) % Plt Count (150-400) K/uL Neut % (Auto) (36-66) % Lymph % (Auto) (24-44) % [place] % (Auto) (2-6) % Eos % (Auto) (2-4) % Baso % (Auto) (0-1) % Sodium (140-148) mmol/L Potassium (3.6-5.2) mmol/L Chloride (100-108) mmol/L Carbon Dioxide (21-32) mmol/L Anion Gap (5.0-14.0) mmol/L BUN (7-18) mg/dL Creatinine (0.8-1.3) mg/dL Est Cr Clr Drug Dosing mL/min Estimated GFR (MDRD) (>60) Glucose (74-106) mg/dL Calcium (8.5-10.1) mg/dL Total Bilirubin (0.2-1.0) mg/dL AST (15-37) U/L ALT (12-78) U/L Alkaline Phosphatase (46-116) U/L Troponin I (0.000-0.056) ng/mL Total Protein (6.4-8.2) g/dL Albumin (3.4-5.0) g/dL Globulin (2.3-3.5) g/dL Albumin/Globulin Ratio (1.2-2.2) Amylase 50 (25-115) U/L Lipase 128 (73-393) U/L Meds: Medications Generic Name Dose Route Start Last Admin Trade Name Freq PRN Reason Stop Dose Admin Hydromorphone HCl 0 mg 08/21/16 02:19 08/21/16 02:46 Dilaudid Hoop Driving Machine Operator Helper 15 Mg In Ns 30 Ml IV 15 mg ASDIRECTED PRN Administration Pain Protocol Ampicillin Sodium/Sulbactam 50 mls @ 100 mls/hr 08/21/16 02:30 08/21/16 02:51 Sodium 1.5 gm/ Sodium Chloride IV 100 mls/hr Q6H [facility] Administration Sodium Chloride 1,000 mls @ 200 mls/hr 08/21/16 02:30 08/21/16 02:36 Normal Saline IV 200 mls/hr ASDIRECTED [place] Administration Naloxone HCl 0.4 mg 08/21/16 02:19 Narcan IVPUSH Q2M PRN Respiratory Distress Discontinued Medications Generic Name Dose Route Start Last Admin Trade Name Sukhdev PRN Reason Stop Dose Admin Hydromorphone HCl 1 mg 08/20/16 23:59 08/21/16 00:02 Dilaudid IM 08/21/16 00:00 1 mg ONETIME ONE Administration - Re-Assessments/Exams Free Text/Narrative Re-Assessment/Exam: 08/20/16 23:16 CBC, CMP, troponin and EKG were obtained initially along with a 1 view chest x- ray. 08/21/16 01:26 White count was 13,300, alkaline phosphatase was elevated and bilirubin was elevated as well as AST. Troponin was 0. 1 view chest x-ray shows no infiltrate , consistent with a chest x-ray done 5 months ago. A gallbladder ultrasound was then performed which showed a very large distended gallbladder with sludge and tenderness with the procedure. I discussed these findings with the patient and with Dr. Stratton of the hospitalist service, I feel this patient needs IV antibiotics tonight, repeat troponin in the morning and possibly a surgical consultation. I see no reason for transfer tonight. He'll be admitted with a repeat troponin, CBC and liver functions in the morning and placed on a TAXATION AGENT for pain control. 1 mg of Dilaudid IM was given to call the patient which gave him good pain relief. Departure - Departure Time of Disposition: 01:50 Disposition: Admitted As Inpatient 68 Condition: Fair Clinical Impression: Chest pain, rule out acute myocardial infarction Abdominal pain Qualifiers: Abdominal location: right upper quadrant Qualified Code(s): R10.11 - Right upper quadrant pain - Discharge Information - My Orders Last 24 Hours: My Active Orders 08/20/16 23:12 EKG Documentation Completion [RC] ASDIRECTED EKG 12 Lead [EK] Routine 08/20/16 23:17 Chest 1V Frontal [CR] Stat 08/21/16 00:15 Abdomen Ltd [US] Stat - Assessment/Plan Last 24 Hours: My Active Orders 08/20/16 23:12 EKG Documentation Completion [RC] ASDIRECTED EKG 12 Lead [EK] Routine 08/20/16 23:17 Chest 1V Frontal [CR] Stat 08/21/16 00:15 Abdomen Ltd [US] Stat
[2016-08-20] MEDS ORDERED: HYDROmorphone 1 MG/ML Syringe IM ONE (23:59)
[2016-08-21] MEDS ORDERED: HYDROmorphone/Normal Saline 15 MG/30 ML PCA IV PRN (02:19)
[2016-08-21] MEDS ORDERED: Naloxone 0.4 MG/ML SDV IVPUSH PRN ×2 (02:19→07:08)
[2016-08-21] MEDS: Sodium Chloride 0.9% 1,000 ML IV SCH ×2 (02:36→07:23)
[2016-08-21] MEDS: Ampicillin/Sulbactam Na 1.5 GM in Sodium Chloride 0.9% 50 ML IV SCH ×4 (02:51→20:17)
[2016-08-21] MEDS ORDERED: Ondansetron 4 MG/2 ML SDV IVPUSH PRN (07:15)
[2016-08-21] MEDS ORDERED: Acetaminophen 325 MG Tab PO PRN (07:15)
--- NOTE | 2016-08-21 07:21 | PCM.HP ---
H&P History of Present Illness - General Date of Service: 08/21/16 Admit Problem/Dx: Admission Diagnosis/Problem Admission Diagnosis/Problem Cholecystitis Source of Information: Patient, Provider History Limitations: Reports: No Limitations - History of Present Illness Initial Comments - Free Text/Narative: Jerome presents to the emergency room today with moderate progressive abdominal pain. This epigastric pain started the morning of presentation and progressed throughout the day. He describes an achy pressure-like pain that is centered in the epigastrium radiates up into the chest and through to the back. He has had nausea and multiple episodes of vomiting. Trying to eat anything causes vomiting and makes the pain worse. He has not been able to keep anything down all day the day prior to presentation. He had some nausea and a general feeling of unwell 2 days ago. He has had subjective fevers at home for the past 24 hours but has not measured any temperatures. He has a mild chronic cough that is at baseline. No complaints of chest pain or chest pain with exertion. His bowels have been moving normally and he has not had rosario-colored stools. He has had similar episodes over the past few weeks though they were much less intense and much shorter in duration. He is not quite able to achieve 4 metabolic equivalents with activity but his back pain and knee pain limiting him rather than being limited by chest pain or shortness of breath. He has no history of difficulty with anesthesia. Diabetes has been well controlled. Workup in the emergency room was suspicious for acute cholecystitis with mild elevation of the hepatic panel numbers and a distended gallbladder with sludge. He was admitted with IV antibiotics and plan for surgical consultation. chest wall Pain Score (Numeric/FACES): 8 - Related Data Allergies/Adverse Reactions: Allergies Allergy/AdvReac Type Severity Reaction Status Date / Time candesartan Allergy Cannot Verified 08/20/16 23:01 Remember finasteride Allergy Cannot Verified 08/20/16 23:01 Remember lisinopril Allergy Confusion Verified 08/20/16 23:01 [id number] Reductase Allergy Chest Verified 08/20/16 23:01 Inhibitor Tightness aspirin AdvReac Bleeding Verified 08/20/16 23:01 Home Medications: Home Meds Allopurinol [Zyloprim] 300 mg PO DAILY 06/01/14 [History] Colchicine 0.6 mg PO BID PRN 06/01/14 [History] Gabapentin [Neurontin] 400 mg PO TID 06/01/14 [History] Omeprazole [Prilosec] 20 mg PO DAILY 06/01/14 [History] Hypromellose [Artificial Tears] 1 drop EYEBOTH QID 06/03/14 [History] Insulin Aspart [Novolog Flexpen] 10 unit SQ BID 06/03/14 [History] Insulin Glarg,Human.Rec.Analog [Lantus] 30 unit SQ BEDTIME 06/03/14 [History] Polyethylene Glycol 8000 [Polyethylene Glycol] 17 gm PO DAILY 06/03/14 [History] amLODIPine Besylate [Amlodipine Besylate] 10 mg PO BEDTIME 06/03/14 [History] Budesonide/Formoterol [Symbicort 80-4.5 MCG] 2 puff INH DAILY 10/11/15 [History] Hydrocortisone [Hydrocortisone 2.5% Crm] 1 applic RECTAL BEDTIME 10/11/15 [ History] Dextrose [Glucose] 4 tab PO DAILY PRN 04/12/16 [History] Metoprolol Succinate 100 mg PO BID 08/20/16 [History] Tiotropium [Spiriva] 18 mcg INH DAILY 08/20/16 [History] Past Medical History HEENT History: Reports: Allergic Rhinitis, Cataract, Impaired Vision, Sinusitis Cardiovascular History: Reports: Bypass, CAD, High Cholesterol, Hypertension, NC Other Cardiovascular History: left above the knee arterial stenosis; multiple NC 's Respiratory History: Reports: Bronchitis, Recurrent, Pneumonia, Recurrent, Sleep Apnea Other Respiratory History: chronic cough Gastrointestinal History: Reports: GERD Other Gastrointestinal History: umbilical hernia Genitourinary History: Reports: Prostate Disorder, Renal Calculus Musculoskeletal History: Reports: Back Pain, Chronic, Fracture, Gout, Osteoarthritis Other Neuro History: neck fracture Endocrine/Metabolic History: Reports: Diabetes, Type II, Obesity/BMI 30+ Hematologic History: Reports: Blood Transfusion(s) Other Hematologic History: chronic leucytic leukemia, chronic lymes Oncologic (Cancer) History: Reports: Basal Cell Carcinoma, Leukemia, Other (See Below) Other Oncologic History: CLL Dermatologic History: Reports: Other (See Below) Other Dermatologic History: skin cancer removal - Past Surgical History HEENT Surgical History: Reports: Oral Surgery Cardiovascular Surgical History: Reports: Coronary Artery Bypass GI Surgical History: Reports: Appendectomy, Colonoscopy, Hernia, Abdominal Male Surgical History: Reports: Lithotripsy (ESWL), TURP-Transurethral Resection of Prostate, Other (See Below) Other Male Surgeries/Procedures: bladder surgery Social & Family History - Family History Cardiac: Reports: CAD - Tobacco Use Smoking Status *Q: Never Smoker Second Hand Smoke Exposure: No - Caffeine Use Caffeine Use: Reports: Coffee Other Caffeine Use: small amount - Alcohol Use Days Per Week of Alcohol Use: 0 - Recreational Drug Use Recreational Drug Use: No H&P Review of Systems - Review of Systems: Review Of Systems: See Below Free Text/Narrative: A complete 12 point review of systems was obtained. Pertinent positives and negatives are noted in the history of present illness. All other systems were reviewed and were negative except as noted. Exam - Exam Exam: See Below - Vital Signs Vital Signs: Last Vital Signs Temp 37.3 C 08/21/16 02:16 Pulse 77 08/21/16 02:16 Resp 20 08/21/16 02:16 BP 151/83 H 08/21/16 02:16 Pulse Ox 93 L 08/21/16 03:07 Weight: 106.141 kg - Exam Quality Assessment: Supplemental Oxygen General: Alert, Oriented, Cooperative. No: Mild Distress HEENT: Conjunctiva Clear. No: Mucosa Moist & [place] (dry), Scleral Icterus Neck: Supple, Trachea Midline. No: Lymphadenopathy, Thyromegaly Lungs: Clear to Auscultation, Normal Respiratory Effort Cardiovascular: Regular Rate, Regular Rhythm. No: Systolic Murmur Abdomen: Normal Bowel Sounds, Soft, Tenderness (moderate epigastric and right upper quadrant tenderness), Leiva's Sign. No: Distention Back Exam: Normal Inspection, Full Range of Motion Extremities: Edema (mild bilateral ankle edema). No: Cyanosis Peripheral Pulses: 2+: Dorsalis Pedis (L), Dorsalis Pedis (R) Skin: Warm, Dry, Other (chronic venous stasis changes of both ankles) Neuro Extensive - Mental Status: Alert, Oriented x3, Nl Response to Commands Neuro Extensive - Motor, Sensory, Reflexes: CN II-XII Intact. No: Dysarthria, Abnormal Motor, Tremor Psychiatric: Alert, Normal Affect - Patient Data Lab Results Last 24 hrs: Laboratory Results - last 24 hr 08/21/16 08/21/16 Range/Units 05:59 05:59 WBC 11.5 H (4.5-11.0) K/uL RBC 3.94 L (4.30-5.90) M/uL Hgb 13.5 (12.0-15.0) g/dL Hct 39.1 L (40.0-54.0) % MCV 99 H (80-98) fL MCH 34 H (27-31) pg MCHC 35 (32-36) % Plt Count 242 (150-400) K/uL Total Bilirubin 1.2 H (0.2-1.0) mg/dL Direct Bilirubin 0.44 H (0.0-0.2) mg/dL Indirect Bilirubin 0.76 AST 211 H (15-37) U/L ALT 161 H (12-78) U/L Alkaline Phosphatase 196 H (46-116) U/L Troponin I < 0.017 (0.000-0.056) ng/mL Total Protein 6.2 L (6.4-8.2) g/dL Albumin 2.7 L (3.4-5.0) g/dL Globulin 3.5 (2.3-3.5) g/dL Albumin/Globulin Ratio 0.8 L (1.2-2.2) Result Diagrams: 08/21/16 05:59 08/20/16 23:27 Imaging Impressions Last 24 hrs: chest x-ray - images personally reviewed - is no evidence for mass, infiltrate, CHF Abdominal ultrasound - radiologist interpretation noted - gallbladder is distended with sludge. Gallbladder wall is not thick. *Q Meaningful Use (ADM) - VTE *Q VTE Criteria *Q: VTE Pharmacological Contraindications *Q: Patient Scheduled Surgery - VTE Risk Assess *Q Each Risk Factor Represents 1 Point: Swollen Legs, Current, Obesity (BMI greater than 30), Abnormal Pulmonary Function (COPD) Total Score 1 Point Risk Factors: 3 Each Risk Factor Represents 2 Points: None Total Score 2 Point Risk Factors: 0 Each Risk Factor Represents 3 Points: Age 75 Years or Greater Total Score 3 Point Risk Factors: 3 Each Risk Factor Represents 5 Points: None Total Score 5 Point Risk Factors: 0 Venous Thromboembolism Risk Factor Score *Q: 6 - Stroke *Q Stroke Criteria *Q: - AMI *Q AMI Criteria *Q: - Problem List (1) Acute cholecystitis SNOMED Code(s): 11889340 ICD Code: K81.0 - ACUTE CHOLECYSTITIS Status: Acute Current Visit: Yes (2) Coronary artery disease SNOMED Code(s): 85707739 ICD Code: I25.10 - ATHSCL HEART DISEASE OF [place] CORONARY ARTERY W/O ANG PCTRS Status: Chronic Current Visit: Yes Qualifiers: Coronary Disease-Associated Artery/Lesion type: [place] artery [place] vs. 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 Qualified Code(s) : E11.8 - Type 2 diabetes mellitus with unspecified complications; Z79.4 - terminal manager (current) use of insulin (4) CKD (chronic kidney disease) stage 3, GFR 30-59 ml/min SNOMED Code(s): 419423137 ICD Code: N18.3 - CHRONIC KIDNEY DISEASE, STAGE 3 (MODERATE) Status: Chronic Current Visit: No Problem List Initiated/Reviewed/Updated: Yes Orders Last 24hrs: Active Orders 24 hr Category Date Time Status Cardiac Monitoring [RC] .As Directed Care 08/21/16 02:27 Active Communication Order [RC] STAT Care 08/21/16 02:19 Active Notify Provider Consults [RC] ASDIRECTED Care 08/21/16 07:15 Ordered Notify Provider [RC] PRN Care 08/21/16 02:19 Active ACTIVITIES DIRECTOR Record [RC] PER UNIT ROUTINE Care 08/21/16 02:19 Active Pulse Oximetry [RC] CONTINUOUS Care 08/21/16 02:19 Active Vital Signs [RC] Q4H Care 08/21/16 02:22 Active Consult to Physician [CONS] Routine Cons 08/21/16 07:14 Ordered NPO Now [Nothing per Oral Now Diet] [DIET] Diet 08/21/16 Breakfast Active CBC W/O DIFF,HEMOGRAM [HEME] Timed (1) Lab 08/22/16 05:00 Ordered COMPREHENSIVE METABOLIC PN,CMP [CHEM] Timed Lab 08/22/16 05:00 Ordered Acetaminophen [Tylenol] Med 08/21/16 07:15 Ordered 650 mg PO Q4H PRN Allopurinol [Zyloprim] Med 08/21/16 09:00 Ordered 300 mg PO DAILY Ampicillin/Sulbactam Na [Unasyn] 1.5 gm Med 08/21/16 02:30 Active Sodium Chloride 0.9% [Normal Saline] 50 ml IV Q6H Budesonide/Formoterol [Symbicort 80-4.5 MCG] Med 08/21/16 09:00 Ordered 2 puff INH DAILY Gabapentin [Neurontin] Med 08/21/16 09:00 Ordered 400 mg PO TID HYDROmorphone/Normal Saline [Dilaudid ACTIVITIES DIRECTOR 15 MG in NS Med 08/21/16 02:19 Active 30 ML] See Protocol IV ASDIRECTED PRN Hypromellose [Natural Balance Tears] Med 08/21/16 10:00 Ordered 1 drop EYEBOTH QID Metoprolol Succinate [Metoprolol Succinate] Med 08/21/16 09:00 Ordered 100 mg PO BID Naloxone [Narcan] Med 08/21/16 07:08 Active 0.1 mg IVPUSH Q5M PRN Ondansetron [Zofran] Med 08/21/16 07:15 Ordered 4 mg IVPUSH Q6H PRN Sodium Chloride 0.9% [Normal Saline] 1,000 ml Med 08/21/16 02:30 Active IV ASDIRECTED Tiotropium [Spiriva HandiHaler] Med 08/21/16 09:00 Ordered 18 mcg INH DAILY amLODIPine [Norvasc] Med 08/21/16 21:00 Ordered 10 mg PO BEDTIME Medication Discontinuation Instructions [OM.PC] Stat Oth 08/21/16 02:19 Ordered Code Status [Resuscitation Status] Routine Resus Stat 08/21/16 02:21 Ordered Medication Orders Hydromorphone HCl (Dilaudid Chemical Checker 15 Mg In Ns 30 Ml) 0 mg IV ASDIRECTED PRN; Protocol PRN Reason: Pain Last Admin: 08/21/16 02:46 Dose: 15 mg Ampicillin Sodium/Sulbactam (Sodium 1.5 gm/ Sodium Chloride) 50 mls @ 100 mls/ hr IV Q6H IRVING Last Admin: 08/21/16 02:51 Dose: 100 mls/hr Sodium Chloride (Normal Saline) 1,000 mls @ 200 mls/hr IV ASDIRECTED IRVING Last Admin: 08/21/16 02:36 Dose: 200 mls/hr Naloxone HCl (Narcan) 0.1 mg IVPUSH Q5M PRN PRN Reason: Respiratory Distress Assessment/Plan Comment:: Assessment and Plan - Probable acute cholecystitis - history, examination workup consistent with acute cholecystitis. Gallbladder is distended and full sludge. He does have some elevation of AST, AST and alkaline phosphatase but no evidence for gallstones. He has been running low-grade fevers. Progressive symptoms over the past 2 weeks much worse in the past 24 hours. I believe he is an optimal achievable medical condition at this time. Functional status is limited by back pain and knee pain rather than by chest pain or shortness of breath. -Continue Amp/Sulbactam -Pain control -IV fluids -Consult Dr. Hodge for consideration of cholecystectomy -Repeat labs in the morning Coronary artery disease - remote history of stenting. No active anginal symptoms. -Continue medical management including beta sher Type 2 diabetes mellitus, insulin-dependent - sugars have been well controlled recently and he has been cutting back on his insulin dosing. -Half dose long-acting insulin tonight -Sliding-scale insulin Stage III chronic kidney disease - kidney function stable and near baseline but slightly decreased. -IV fluids -Repeat labs in the morning Maintenance issues - - DVT prophylaxis - mechanical with probable surgery - GI prophylaxis - PPI - Nutrition - nothing by mouth until after his surgery - Carlson catheter - not indicated CODE STATUS - full code Admission justification - This patient will be admitted for inpatient services and is medically appropriate meeting medical necessity for inpatient admission as outlined in my documentation. I reasonably expect the patient will require inpatient services that span a period time over 2 midnights. I reasonably expect this patient to be discharged or transferred within 96 hours [facility] Disposition - anticipate discharge to home after the hospital stay Primary care physician - Dr. Jerardo Stratton M.D.
[2016-08-21] MEDS ORDERED: Albuterol/Ipratropium 3.0-0.5 MG/3 ML Neb Soln NEB ONE ×2 (08:01→11:02)
[2016-08-21] MEDS ORDERED: Albuterol/Ipratropium 3.0-0.5 MG/3 ML Neb Soln ONE (08:07)
[2016-08-21] MEDS ORDERED: Dexamethasone 4 MG/ML SDV ONE (08:17)
[2016-08-21] MEDS ORDERED: Ondansetron 4 MG/2 ML SDV ONE (08:17)
[2016-08-21] MEDS ORDERED: fentaNYL 250 MCG/5 ML SDV ONE ×2 (08:17→09:13)
[2016-08-21] MEDS ORDERED: Etomidate 2 MG/ML 10 ML SDV ONE (08:17)
[2016-08-21] MEDS ORDERED: Neostigmine Methylsulfate 1 MG/ML 5 ML Syringe ONE (08:17)
[2016-08-21] MEDS ORDERED: Rocuronium 50 MG/5 ML Vial ONE (08:17)
--- NOTE | 2016-08-21 08:35 | CR ---
Heart size upper limits of normal. No focal consolidation. Pulmonary vasculature upper limits of nor mal.
[2016-08-21] MEDS ORDERED: Non-Formulary Medication 1 Each (Budesonide/Formoterol [Symbicort 80-4.5 Mcg] 2 PUFF) INH SCH (09:00)
[2016-08-21] MEDS ORDERED: Gabapentin 300 MG Cap PO SCH (09:00)
[2016-08-21] MEDS ORDERED: ALLOPURINOL 300 MG PO SCH (09:00)
[2016-08-21] MEDS ORDERED: Non-Formulary Medication 1 Each (Metoprolol Succinate [Metoprolol Succinate] 100 MG) PO SCH (09:00)
[2016-08-21] MEDS: Bupivacaine 0.5% 50 ML MDV ONE ×2 (09:45→10:38)
[2016-08-21] MEDS: Lidocaine 1% with EPINEPHrine 1:100,000 50 ML MDV ONE ×2 (09:45→10:38)
--- NOTE | 2016-08-21 10:15 | CR ---
Cholangiogram. Third image demonstrates no definitive intrahepatic biliary ductal dilatation. No def initive filling defect. Contrast into the small bowel.
[2016-08-21] MEDS ORDERED: hydrOXYzine HCl 50 MG/ML SDV IM ONE (11:07)
[2016-08-21] MEDS: Tiotropium Inhaler 18 MCG Inhalation Powder Cap Kit of 5 INH SCH (11:13)
[2016-08-21] MEDS: Sodium Chloride 0.45% with KCl 1,000 ML IV SCH ×2 (12:05→20:35)
[2016-08-21] MEDS: Insulin Aspart 100 Units/ML 3 ML Pen SUBCUT SCH ×4 (12:05→21:54)
[2016-08-21] MEDS: Hypromellose 0.4% Ophth Soln 15 ML Bottle EYEBOTH SCH ×3 (12:13→21:56)
[2016-08-21] MEDS: Metoprolol Succinate 50 MG Tab.ER PO SCH ×2 (12:13→21:57)
[2016-08-21] MEDS: Gabapentin 400 MG Cap PO SCH ×4 (12:13→20:17)
[2016-08-21] MEDS ORDERED: amLODIPine 10 MG Tab PO SCH (21:00)
[2016-08-21] MEDS ORDERED: LANTUS 100 UNIT/ML SUBCUT SCH (21:00)
[2016-08-21] MEDS: GABAPENTIN 400 MG PO SCH (21:55)
[2016-08-21] MEDS: amLODIPine 10 MG Tab (PTOM) PO SCH (21:56)
[2016-08-21] MEDS: LANTUS SUBCUT SCH ×2 (21:59→22:04)
[2016-08-22] MEDS: Ampicillin/Sulbactam Na 1.5 GM in Sodium Chloride 0.9% 50 ML IV SCH ×3 (02:46→14:30)
[2016-08-22] MEDS: Sodium Chloride 0.45% with KCl 1,000 ML IV SCH (04:35)
[2016-08-22] MEDS: Hypromellose 0.4% Ophth Soln 15 ML Bottle EYEBOTH SCH ×5 (04:43→21:24)
[2016-08-22] MEDS ORDERED: Sodium Chloride 0.45% 1,000 ML IV SCH (06:30)
--- NOTE | 2016-08-22 06:36 | PCM.SURGPN ---
- General Info Date of Service: 08/22/16 Date of Surgery/Procedure: 08/21/16 POD#: 1 Functional Status: Reports: pain controlled, tolerating diet, ambulating, urinating, incentive spirometry - Review of Systems General: Reports: Weakness HEENT: Reports: no symptoms Pulmonary: Reports: no symptoms Cardiovascular: Reports: No Symptoms Gastrointestinal: Reports: Abdominal pain Genitourinary: Reports: no symptoms Musculoskeletal: Reports: no symptoms Skin: Reports: no symptoms Neurological: Reports: No Symptoms Psychiatric: Reports: no symptoms - Patient Data Vitals - most recent: Last Vital Signs Temp 96.6 F 08/22/16 03:00 Pulse 57 L 08/22/16 03:00 Resp 18 08/22/16 03:00 BP 132/72 08/22/16 03:00 Pulse Ox 93 L 08/22/16 03:00 Weight - most recent: 234 lb 0.013 oz I&O - last 24 hours: Intake & Output 08/21/16 08/21/16 08/22/16 14:59 22:59 06:59 Intake Total 950 1178 2000 Output Total 6412 979 2654 Balance -450 678 455 Lab Results last 24 hrs: Laboratory Results - last 24 hr 08/21/16 08/22/16 08/22/16 Range/Units 16:38 05:00 05:00 WBC 12.5 H 13.6 H (4.5-11.0) K/uL RBC 4.24 L 3.99 L (4.30-5.90) M/uL Hgb 14.1 13.6 (12.0-15.0) g/dL Hct 42.5 40.1 (40.0-54.0) % MCV 100 H 101 H (80-98) fL MCH 33 H 34 H (27-31) pg MCHC 33 34 (32-36) % Plt Count 245 210 (150-400) K/uL Sodium 137 L (140-148) mmol/L Potassium 5.6 H (3.6-5.2) mmol/L Chloride 106 (100-108) mmol/L Carbon Dioxide 22 (21-32) mmol/L Anion Gap 14.6 H (5.0-14.0) mmol/L BUN 33 H (7-18) mg/dL Creatinine 1.8 H (0.8-1.3) mg/dL Est Cr Clr Drug Dosing 32.58 mL/min Estimated GFR (MDRD) 36 L (>60) Glucose 138 H (74-106) mg/dL Calcium 8.3 L (8.5-10.1) mg/dL Total Bilirubin 0.7 (0.2-1.0) mg/dL AST 79 H (15-37) U/L ALT 125 H (12-78) U/L Alkaline Phosphatase 171 H (46-116) U/L Total Protein 6.5 (6.4-8.2) g/dL Albumin 2.8 L (3.4-5.0) g/dL Globulin 3.7 H (2.3-3.5) g/dL Albumin/Globulin Ratio 0.8 L (1.2-2.2) Walter Results last 24 hrs: Microbiology 08/21/16 11:55 Gram Stain - Final Gallbladder Wound Culture - Preliminary NO GROWTH AFTER 1 DAY Anaerobic Culture - Preliminary NO GROWTH AFTER 1 DAY Med Orders - Current: Current Medications Allopurinol (Zyloprim) 300 mg PO DAILY [facility] Last Admin: 08/21/16 12:13 Dose: 300 mg Amlodipine Besylate (Norvasc) 10 mg PO BEDTIME [facility] Last Admin: 08/21/16 21:56 Dose: 10 mg Artificial Tears (Natural Balance Tears) 0 ml EYEBOTH QID [facility] Last Admin: 08/22/16 05:50 Dose: Not Given Gabapentin (Neurontin) 400 mg PO TID [facility] Last Admin: 08/21/16 21:55 Dose: 400 mg Hydromorphone HCl (Dilaudid Industrial Machinery [employer]ic 15 Mg In Ns 30 Ml) 0 mg IV ASDIRECTED PRN; Protocol PRN Reason: Pain Last Admin: 08/21/16 02:46 Dose: 15 mg Ampicillin Sodium/Sulbactam (Sodium 1.5 gm/ Sodium Chloride) 50 mls @ 100 mls/ hr IV Q6H [facility] Last Admin: 08/22/16 02:46 Dose: 100 mls/hr Potassium Chloride/Sodium Chloride (1/2 Ns With 20 Meq Kcl) 1,000 mls @ 125 mls /hr IV ASDIRECTED [facility] Last Admin: 08/22/16 04:35 Dose: 125 mls/hr Sodium Chloride (Sodium Chloride 0.45%) 1,000 mls @ 25 mls/hr IV ASDIRECTED [facility] Insulin Aspart (Novolog) 0 unit SUBCUT WITHMEALSANDBED [facility] PRN Reason: Protocol Last Admin: 08/21/16 21:54 Dose: 4 units Metoprolol Succinate (Toprol Xl) 100 mg PO BID [facility] Last Admin: 08/21/16 21:57 Dose: 100 mg Naloxone HCl (Narcan) 0.1 mg IVPUSH Q5M PRN PRN Reason: Respiratory Distress Non-Formulary Medication (Budesonide/Formoterol [Symbicort 80-4.5 Mcg]) 2 puff INH DAILY [facility] Ondansetron HCl (Zofran) 4 mg IVPUSH Q6H PRN PRN Reason: Nausea/Vomiting Lantus Pen Ptom* () 15 each SUBCUT BEDTIME [facility] Last Admin: 08/21/16 22:04 Dose: Not Given Tiotropium Totz (Spiriva Handihaler) 18 mcg INH DAILYRT [facility] Last Admin: 08/21/16 11:13 Dose: Not Given Discontinued Medications Acetaminophen (Tylenol) 650 mg PO Q4H PRN PRN Reason: Pain/Fever Albuterol/Ipratropium (Duoneb 3.0-0.5 Mg/3 Ml) 3 ml NEB ONETIME ONE Stop: 08/21/16 08:02 Last Admin: 08/21/16 08:11 Dose: 3 ml Albuterol/Ipratropium (Duoneb 3.0-0.5 Mg/3 Ml) Confirm Administered Dose 3 ml .ROUTE .STK-MED ONE Stop: 08/21/16 08:08 Last Admin: 08/21/16 09:29 Dose: Not Given Albuterol/Ipratropium (Duoneb 3.0-0.5 Mg/3 Ml) 3 ml NEB ONETIME ONE Stop: 08/21/16 11:03 Last Admin: 08/21/16 11:13 Dose: 3 ml Amlodipine Besylate (Norvasc) 10 mg PO BEDTIME [facility] Bupivacaine HCl (Marcaine 0.5%) Confirm Administered Dose 50 ml .ROUTE .STK-MED ONE Stop: 08/21/16 08:14 Last Admin: 08/21/16 10:38 Dose: 20 ml Dexamethasone (Dexamethasone) Confirm Administered Dose 4 mg .ROUTE .STK-MED ONE Stop: 08/21/16 08:18 Etomidate (Amidate) Confirm Administered Dose 20 mg .ROUTE .STK-MED ONE Stop: 08/21/16 08:18 Fentanyl (Sublimaze) Confirm Administered Dose 250 mcg .ROUTE .STK-MED ONE Stop: 08/21/16 08:18 Fentanyl (Sublimaze) Confirm Administered Dose 250 mcg .ROUTE .STK-MED ONE Stop: 08/21/16 09:14 Gabapentin (Neurontin) 400 mg PO TID [facility] Last Admin: 08/21/16 17:43 Dose: 400 mg Glycopyrrolate () Confirm Administered Dose 1 mg .ROUTE .STK-MED ONE Stop: 08/21/16 08:18 Hydromorphone HCl (Dilaudid) 1 mg IM ONETIME ONE Stop: 08/21/16 00:00 Last Admin: 08/21/16 00:02 Dose: 1 mg Hydroxyzine HCl (Vistaril) 100 mg IM ONETIME ONE Stop: 08/21/16 11:08 Last Admin: 08/21/16 11:14 Dose: 100 mg Sodium Chloride (Normal Saline) 1,000 mls @ 200 mls/hr IV ASDIRECTED [facility] Last Admin: 08/21/16 07:23 Dose: 200 mls/hr Insulin Detemir (Levemir) 15 unit SUBCUT BEDTIME [facility] Last Admin: 08/21/16 21:59 Dose: Not Given Lidocaine/Epinephrine (Xylocaine 1% With Epinephrine 1:100,000) Confirm Administered Dose 50 ml .ROUTE .STK-MED ONE Stop: 08/21/16 08:14 Last Admin: 08/21/16 10:38 Dose: 20 ml Naloxone HCl (Narcan) 0.4 mg IVPUSH Q2M PRN PRN Reason: Respiratory Distress Neostigmine Methylsulfate (Neostigmine) Confirm Administered Dose 5 mg .ROUTE .STK-MED ONE Stop: 08/21/16 08:18 Ondansetron HCl (Zofran) Confirm Administered Dose 4 mg .ROUTE .STK-MED ONE Stop: 08/21/16 08:18 Rocuronium Totz (Zemuron) Confirm Administered Dose 50 mg .ROUTE .STK-MED ONE Stop: 08/21/16 08:18 - Exam Wound/Incisions: healing well, no drainage Quality Assessment: supplemental oxygen, DVT prophylaxis General: alert, oriented, cooperative, no acute distress Lungs: Clear to auscultation, Normal respiratory effort Cardiovascular: Regular Rate, Regular Rhythm Abdomen: bowel sounds present, soft, no tenderness, no distension Extremities: no edema Skin: warm, dry, intact Neurological: no new focal deficit Psy/Mental Status: alert, normal affect, normal mood - Problem List & Annotations (1) Acute cholecystitis SNOMED Code(s): 15563342 Code(s): K81.0 - ACUTE CHOLECYSTITIS Status: Acute Current Visit: Yes - Problem List Review Problem List Initiated/Reviewed/Updated: Yes - My Orders Last 24 Hours: Active Orders 24 hr Category Date Time Status Communication Order [RC] PRN Care 08/21/16 07:27 Active Communication Order [RC] PRN Care 08/21/16 07:27 Active Diabetes Education [RC] Click to Edit Care 08/21/16 07:27 Active Drain Management [RC] Q12H Care 08/21/16 11:15 Active Incentive Breathing [RT Incentive Spirometry] [RC] Care 08/21/16 15:42 Active Q1HWA Notify Provider Consults [RC] ASDIRECTED Care 08/21/16 07:15 Active RT Aerosol Therapy [RC] ASDIRECTED Care 08/21/16 08:02 Active Turn, Cough, Deep Breathe [RC] Q1HWA Care 08/21/16 15:41 Active Consult to Physician [CONS] Routine Cons 08/21/16 07:14 Ordered Clear Liquid Diet [DIET] Diet 08/21/16 Dinner Active Full Liquid Diet [DIET] Diet 08/22/16 Breakfast Ordered CULTURE ANAEROBIC [RM] Routine Lab 08/21/16 11:55 Results CULTURE WOUND + SMEAR [RM] Routine Lab 08/21/16 11:55 Results GLUCOSE POC LAB TO COLLECT [POC] QIDACANDBED Lab 08/22/16 07:30 Ordered GLUCOSE POC LAB TO COLLECT [POC] QIDACANDBED Lab 08/22/16 11:30 Ordered GLUCOSE POC LAB TO COLLECT [POC] QIDACANDBED Lab 08/22/16 16:30 Ordered GLUCOSE POC LAB TO COLLECT [POC] QIDACANDBED Lab 08/22/16 21:00 Ordered GLUCOSE POC LAB TO COLLECT [POC] QIDACANDBED Lab 08/23/16 07:30 Ordered GLUCOSE POC LAB TO COLLECT [POC] QIDACANDBED Lab 08/23/16 11:30 Ordered GLUCOSE POC LAB TO COLLECT [POC] QIDACANDBED Lab 08/23/16 16:30 Ordered GLUCOSE POC LAB TO COLLECT [POC] QIDACANDBED Lab 08/23/16 21:00 Ordered GLUCOSE POC LAB TO COLLECT [POC] QIDACANDBED Lab 08/24/16 07:30 Ordered GLUCOSE POC LAB TO COLLECT [POC] QIDACANDBED Lab 08/24/16 11:30 Ordered GLUCOSE POC LAB TO COLLECT [POC] QIDACANDBED Lab 08/24/16 16:30 Ordered GLUCOSE POC LAB TO COLLECT [POC] QIDACANDBED Lab 08/24/16 21:00 Ordered GLUCOSE POC LAB TO COLLECT [POC] QIDACANDBED Lab 08/25/16 07:30 Ordered GLUCOSE POC LAB TO COLLECT [POC] QIDACANDBED Lab 08/25/16 11:30 Ordered GLUCOSE POC LAB TO COLLECT [POC] QIDACANDBED Lab 08/25/16 16:30 Ordered GLUCOSE POC LAB TO COLLECT [POC] QIDACANDBED Lab 08/25/16 21:00 Ordered GLUCOSE POC LAB TO COLLECT [POC] QIDACANDBED Lab 08/26/16 07:30 Ordered GLUCOSE POC LAB TO COLLECT [POC] QIDACANDBED Lab 08/26/16 11:30 Ordered Allopurinol [Zyloprim] Med 08/21/16 09:00 Active 300 mg PO DAILY Budesonide/Formoterol [Symbicort 80-4.5 MCG] Med 08/21/16 09:00 Pending 2 puff INH DAILY Gabapentin [Neurontin] Med 08/21/16 21:00 Active 400 mg PO TID Hypromellose [Natural Balance Tears] Med 08/21/16 10:00 Active 0 ml EYEBOTH QID Insulin Aspart [NovoLOG] Med 08/21/16 08:00 Active See Protocol SUBCUT WITHMEALSANDBED Metoprolol Succinate [Toprol XL] Med 08/21/16 09:00 Active 100 mg PO BID Naloxone [Narcan] Med 08/21/16 07:08 Active 0.1 mg IVPUSH Q5M PRN Ondansetron [Zofran] Med 08/21/16 07:15 Active 4 mg IVPUSH Q6H PRN Patient's Own Medication [Ptom] Med 08/21/16 21:00 Active 15 each SUBCUT BEDTIME Sodium Chloride 0.45% 1,000 ml Med 08/22/16 06:30 Ordered IV ASDIRECTED Sodium Chloride 0.45% with KCl [1/2 NS with 20 mEq KCl] Med 08/21/16 11:15 Active 1,000 ml IV ASDIRECTED Tiotropium [Spiriva HandiHaler] Med 08/21/16 07:00 Active 18 mcg INH DAILYRT amLODIPine [Norvasc] Med 08/21/16 21:00 Active 10 mg PO BEDTIME SCD [Sequential Compression Device] [OM.PC] Routine Oth 08/21/16 15:41 Ordered Medication Orders Allopurinol (Zyloprim) 300 mg PO DAILY [facility] Last Admin: 08/21/16 12:13 Dose: 300 mg Amlodipine Besylate (Norvasc) 10 mg PO BEDTIME [facility] Last Admin: 08/21/16 21:56 Dose: 10 mg Artificial Tears (Natural Balance Tears) 0 ml EYEBOTH QID [facility] Last Admin: 08/22/16 05:50 Dose: Admin: 08/22/16 04:43 Dose: 1 drop Admin: 08/21/16 21:56 Dose: 1 drop Admin: 08/21/16 17:43 Dose: 1 drop Admin: 08/21/16 12:13 Dose: 1 drop Gabapentin (Neurontin) 400 mg PO TID [facility] Last Admin: 08/21/16 21:55 Dose: 400 mg Hydromorphone HCl (Dilaudid Industrial Machinery Mechanic 15 Mg In Ns 30 Ml) 0 mg IV ASDIRECTED PRN; Protocol PRN Reason: Pain Last Admin: 08/21/16 02:46 Dose: 15 mg Ampicillin Sodium/Sulbactam (Sodium 1.5 gm/ Sodium Chloride) 50 mls @ 100 mls/ hr IV Q6H [facility] Last Admin: 08/22/16 02:46 Dose: 100 mls/hr Admin: 08/21/16 20:17 Dose: 100 mls/hr Admin: 08/21/16 13:31 Dose: 100 mls/hr Admin: 08/21/16 08:00 Dose: 100 mls/hr Admin: 08/21/16 02:51 Dose: 100 mls/hr Potassium Chloride/Sodium Chloride (1/2 Ns With 20 Meq Kcl) 1,000 mls @ 125 mls /hr IV ASDIRECTED [facility] Last Admin: 08/22/16 04:35 Dose: 125 mls/hr Infusion: 08/22/16 04:35 Dose: 125 mls/hr Admin: 08/21/16 20:35 Dose: 125 mls/hr Infusion: 08/21/16 20:05 Dose: 125 mls/hr Admin: 08/21/16 12:05 Dose: 125 mls/hr Sodium Chloride (Sodium Chloride 0.45%) 1,000 mls @ 25 mls/hr IV ASDIRECTED [facility] Insulin Aspart (Novolog) 0 unit SUBCUT WITHMEALSANDBED [facility] PRN Reason: Protocol Last Admin: 08/21/16 21:54 Dose: 4 units Admin: 08/21/16 17:43 Dose: 4 units Admin: 08/21/16 12:20 Dose: 6 units Admin: 08/21/16 12:05 Dose: Metoprolol Succinate (Toprol Xl) 100 mg PO BID [facility] Last Admin: 08/21/16 21:57 Dose: 100 mg Admin: 08/21/16 12:13 Dose: 100 mg Naloxone HCl (Narcan) 0.1 mg IVPUSH Q5M PRN PRN Reason: Respiratory Distress Non-Formulary Medication (Budesonide/Formoterol [Symbicort 80-4.5 Mcg]) 2 puff INH DAILY [facility] Ondansetron HCl (Zofran) 4 mg IVPUSH Q6H PRN PRN Reason: Nausea/Vomiting Lantus Pen Ptom* () 15 each SUBCUT BEDTIME [facility] Last Admin: 08/21/16 22:04 Dose: Admin: 08/21/16 21:59 Dose: 15 each Tiotropium Totz (Spiriva Handihaler) 18 mcg INH DAILYRT [facility] Last Admin: 08/21/16 11:13 Dose: Not Given - Assessment Assessment (Free Text/Narrative):: He says his pain is less than preoperatively. He notes epigastric pain. He is tolerating a clear liquid diet. His WBC remains elevated. Potassium is elevated. Creatinine still elevated. Bilirubin now normal. - Plan Plan (Free Text/Narrative):: TKO IV. Remove potassium from IV fluid. Trial of full liquid diet. Continue antibiotics.
[2016-08-22] MEDS: Tiotropium Inhaler 18 MCG Inhalation Powder Cap Kit of 5 INH SCH (08:02)
[2016-08-22] MEDS: SYMBICORT 160/4.5 INHALER (PTOM) INH SCH (08:03)
[2016-08-22] MEDS: TIOTROPIUM 18 MCG INH SCH (08:06)
[2016-08-22] MEDS: Insulin Aspart 100 Units/ML 3 ML Pen SUBCUT SCH ×4 (09:02→21:22)
[2016-08-22] MEDS: ALLOPURINOL 300 MG PO SCH (09:04)
[2016-08-22] MEDS: GABAPENTIN 400 MG PO SCH ×3 (09:04→20:21)
[2016-08-22] MEDS: METOPROLOL 200 MG PO SCH ×2 (09:05→20:20)
--- NOTE | 2016-08-22 10:25 | OR ---
DATE OF PROCEDURE: 08/21/2016 PREOPERATIVE DIAGNOSIS: Acute cholecystitis with gallbladder sludge. POSTOPERATIVE DIAGNOSIS: Acute cholecystitis with cholelithiasis. PROCEDURES: Laparoscopic cholecystectomy with intraoperative cholangiogram. ANESTHESIA: General endotracheal. INDICATION: This 85-year-old white male complains of a couple of days of upper abdominal pain. This got bad enough causing him to come to the emergency room. He was found to be tender in his upper abdomen. He had a temperature of a 100.4. He had an elevated alkaline phosphatase at 198, total bilirubin was 1.2, slightly elevated. His white count was 13,300; abdominal ultrasound showed acute cholecystitis with sludge in the gallbladder. He received Unasyn and was taken to the operating room for a laparoscopic cholecystectomy with intraoperative cholangiogram. I counseled him for surgery including risks and alternatives and he gave his informed consent to proceed. PROCEDURE IN DETAILS: After adequate general endotracheal anesthesia was obtained, the patient's abdomen was prepped and draped in the usual sterile fashion. Time -out was held. A small transverse epigastric incision was made and through this incision, a 12- mm port was introduced into the abdomen using the Optiview technique with the port oriented toward the liver. The abdomen was then insufflated to a pressure of 15 mmHg with carbon dioxide and the camera was introduced into the abdomen. No evidence of intraabdominal injury was seen. Under direct vision, a 12-mm port was placed to the right of the umbilicus as he does have a history of umbilical hernia repair with mesh, and then two 5-mm ports were placed to the right of this. The gallbladder was grasped and elevated. It was noted to be edematous and with an erythematous hue and distended, consistent with acute cholecystitis. The cystic duct was ultimately able to be dissected free. To accomplish this, we had to drain the gallbladder. We encountered multiple small stones which we aspirated free. The cystic artery was clipped, some lymphatics were clipped. We clipped the cystic duct right up on the gallbladder and made a small ductotomy. A cholangiocatheter was then placed and we obtained 3 cholangiograms, first by injecting 7 and then 20 mL of half- strength contrast material. This showed that the cholangiocatheter appeared to be far down into the common duct. We pulled the cholangiocatheter back and obtained the third cholangiogram with full strength contrast. This showed good flow of the duodenum. No filling defects. Normal size, duct, and good retrograde flow into the hepatic radicals. The cholangiocatheter was removed and the duct was clipped 3 times adjacent to the ductotomy and the duct was then divided at the ductotomy site. The gallbladder was then dissected free from the gallbladder bed using Bovie electrocautery. It was placed in a sample retrieval bag and elevated up through the anterior abdominal wall. To accomplish this, we had to enlarge the incision. The gallbladder was noted to be filled with small stones. It was cultured off the field. The epigastric port was reintroduced back in the abdomen. The gallbladder bed was irrigated and suctioned dry. Hemostasis was obtained with electrocautery. We placed a Valdemar-Sauceda drain and brought it out through the lateral of the two 5-mm port sites in the right lower quadrant. This was placed up in the area of the gallbladder bed. The fascial closure device was then used to place an 0 Vicryl stitch in the epigastric fascial defect. The 12- mm port through which the camera had been placed was removed and an interrupted stitch of 0- Vicryl was used to close this fascial defect. We then evacuated as much as CO2 as we could from the abdomen through the other 5-mm port and then this port was removed. The incisions were all anesthetized with 0.5% Marcaine with epinephrine in a 50:50 mix with 1 % lidocaine plain. 4-0 Vicryl used with a subcuticular stitch was placed to approximate the skin of the three remaining incisions and the drain was then anchored with 4-0 Vicryl. Dermabond was applied to the incisions and a dressing to the drain. The anesthesia was reversed. He was extubated and brought to recovery room in fair condition. Wilton Hodge MD /[id number]
--- NOTE | 2016-08-22 13:01 | PCM.PN ---
- General Info Date of Service: 08/22/16 Functional Status: Reports: pain controlled, tolerating diet - Review of Systems Gastrointestinal: Reports: Abdominal pain (mild) Systems Review Comment:: No acute events since surgery. Abdominal pain is minimal and well-controlled. He is tolerating his diet well. He does become hypoxic when he falls asleep but responds well to supplemental oxygen. He has not had fevers. Tolerating his current antibiotics. Transaminases have improved compared to yesterday but remain elevated. - Patient Data Vitals - most recent: Last Vital Signs Temp 35.4 C 08/22/16 11:11 Pulse 55 L 08/22/16 11:11 Resp 16 08/22/16 11:11 BP 136/77 08/22/16 11:11 Pulse Ox 100 08/22/16 11:11 Weight - most recent: 106.141 kg I&O - last 24 hours: Intake & Output 08/21/16 08/22/16 08/22/16 22:59 06:59 14:59 Intake Total 1178 2000 450 Output Total 500 1545 940 Balance 678 455 -490 Lab Results last 24 hrs: Laboratory Results - last 24 hr 08/21/16 08/22/16 08/22/16 Range/Units 16:38 05:00 05:00 WBC 12.5 H 13.6 H (4.5-11.0) K/uL RBC 4.24 L 3.99 L (4.30-5.90) M/uL Hgb 14.1 13.6 (12.0-15.0) g/dL Hct 42.5 40.1 (40.0-54.0) % MCV 100 H 101 H (80-98) fL MCH 33 H 34 H (27-31) pg MCHC 33 34 (32-36) % Plt Count 245 210 (150-400) K/uL Sodium 137 L (140-148) mmol/L Potassium 5.6 H (3.6-5.2) mmol/L Chloride 106 (100-108) mmol/L Carbon Dioxide 22 (21-32) mmol/L Anion Gap 14.6 H (5.0-14.0) mmol/L BUN 33 H (7-18) mg/dL Creatinine 1.8 H (0.8-1.3) mg/dL Est Cr Clr Drug Dosing 32.58 mL/min Estimated GFR (MDRD) 36 L (>60) Glucose 138 H (74-106) mg/dL Calcium 8.3 L (8.5-10.1) mg/dL Total Bilirubin 0.7 (0.2-1.0) mg/dL AST 79 H (15-37) U/L ALT 125 H (12-78) U/L Alkaline Phosphatase 171 H (46-116) U/L Total Protein 6.5 (6.4-8.2) g/dL Albumin 2.8 L (3.4-5.0) g/dL Globulin 3.7 H (2.3-3.5) g/dL Albumin/Globulin Ratio 0.8 L (1.2-2.2) Walter Results last 24 hrs: Microbiology 08/21/16 11:55 Gram Stain - Final Gallbladder Wound Culture - Preliminary NO GROWTH AFTER 1 DAY Anaerobic Culture - Preliminary NO GROWTH AFTER 1 DAY Med Orders - Current: Current Medications Allopurinol (Zyloprim) 300 mg PO DAILY [facility] Last Admin: 08/22/16 09:04 Dose: 300 mg Amlodipine Besylate (Norvasc) 10 mg PO BEDTIME [facility] Last Admin: 08/21/16 21:56 Dose: 10 mg Amoxicillin/Clavulanate Potassium (Augmentin 875 Mg/125 Mg) 1 tab PO Q12H [facility] Artificial Tears (Natural Balance Tears) 0 ml EYEBOTH QID [facility] Last Admin: 08/22/16 09:07 Dose: 1 drop Gabapentin (Neurontin) 400 mg PO TID [facility] Last Admin: 08/22/16 09:04 Dose: 400 mg Ampicillin Sodium/Sulbactam (Sodium 1.5 gm/ Sodium Chloride) 50 mls @ 100 mls/ hr IV Q6H [facility] Stop: 08/22/16 20:00 Last Admin: 08/22/16 09:11 Dose: 100 mls/hr Insulin Aspart (Novolog) 0 unit SUBCUT WITHMEALSANDBED [facility] PRN Reason: Protocol Last Admin: 08/22/16 12:54 Dose: 2 units Naloxone HCl (Narcan) 0.1 mg IVPUSH Q5M PRN PRN Reason: Respiratory Distress Ondansetron HCl (Zofran) 4 mg IVPUSH Q6H PRN PRN Reason: Nausea/Vomiting Oxycodone HCl (Oxycodone) 5 - 10 mg PO Q4H PRN PRN Reason: Pain Lantus Pen Ptom* () 15 each SUBCUT BEDTIME [facility] Last Admin: 08/21/16 22:04 Dose: Not Given Metoprolol Xl 200mg (Tab (Ptom)) 0 each PO BID [facility] Last Admin: 08/22/16 09:05 Dose: 0.5 each Symbicort 160/4.5 (Inhaler (Ptom)) 0 each INH DAILY [facility] Last Admin: 08/22/16 08:03 Dose: 2 each Tiotropium [place] (Spiriva Handihaler) 18 mcg INH DAILYRT [facility] Last Admin: 08/22/16 08:06 Dose: Not Given Discontinued Medications Acetaminophen (Tylenol) 650 mg PO Q4H PRN PRN Reason: Pain/Fever Albuterol/Ipratropium (Duoneb 3.0-0.5 Mg/3 Ml) 3 ml NEB ONETIME ONE Stop: 08/21/16 08:02 Last Admin: 08/21/16 08:11 Dose: 3 ml Albuterol/Ipratropium (Duoneb 3.0-0.5 Mg/3 Ml) Confirm Administered Dose 3 ml .ROUTE .STK-MED ONE Stop: 08/21/16 08:08 Last Admin: 08/21/16 09:29 Dose: Not Given Albuterol/Ipratropium (Duoneb 3.0-0.5 Mg/3 Ml) 3 ml NEB ONETIME ONE Stop: 08/21/16 11:03 Last Admin: 08/21/16 11:13 Dose: 3 ml Allopurinol (Zyloprim) 300 mg PO DAILY [facility] Last Admin: 08/21/16 12:13 Dose: 300 mg Amlodipine Besylate (Norvasc) 10 mg PO BEDTIME [facility] Bupivacaine HCl (Marcaine 0.5%) Confirm Administered Dose 50 ml .ROUTE .STK-MED ONE Stop: 08/21/16 08:14 Last Admin: 08/21/16 10:38 Dose: 20 ml Dexamethasone (Dexamethasone) Confirm Administered Dose 4 mg .ROUTE .STK-MED ONE Stop: 08/21/16 08:18 Etomidate (Amidate) Confirm Administered Dose 20 mg .ROUTE .STK-MED ONE Stop: 08/21/16 08:18 Fentanyl (Sublimaze) Confirm Administered Dose 250 mcg .ROUTE .STK-MED ONE Stop: 08/21/16 08:18 Fentanyl (Sublimaze) Confirm Administered Dose 250 mcg .ROUTE .[facility] ONE Stop: 08/21/16 09:14 Gabapentin (Neurontin) 400 mg PO TID [facility] Last Admin: 08/21/16 17:43 Dose: 400 mg Glycopyrrolate () Confirm Administered Dose 1 mg .ROUTE .[facility] ONE Stop: 08/21/16 08:18 Hydromorphone HCl (Dilaudid) 1 mg IM ONETIME ONE Stop: 08/21/16 00:00 Last Admin: 08/21/16 00:02 Dose: 1 mg Hydromorphone HCl (Dilaudid [employer] 15 Mg In Ns 30 Ml) 0 mg IV ASDIRECTED PRN; Protocol PRN Reason: Pain Last Admin: 08/21/16 02:46 Dose: 15 mg Hydroxyzine HCl (Vistaril) 100 mg IM ONETIME ONE Stop: 08/21/16 11:08 Last Admin: 08/21/16 11:14 Dose: 100 mg Sodium Chloride (Normal Saline) 1,000 mls @ 200 mls/hr IV ASDIRECTED [facility] Last Admin: 08/21/16 07:23 Dose: 200 mls/hr Potassium Chloride/Sodium Chloride (1/2 Ns With 20 Meq Kcl) 1,000 mls @ 125 mls /hr IV ASDIRECTED [facility] Last Admin: 08/22/16 04:35 Dose: 125 mls/hr Sodium Chloride (Sodium Chloride 0.45%) 1,000 mls @ 25 mls/hr IV ASDIRECTED [facility] Last Admin: 08/22/16 07:04 Dose: 25 mls/hr Insulin Detemir (Levemir) 15 unit SUBCUT BEDTIME [facility] Last Admin: 08/21/16 21:59 Dose: Not Given Lidocaine/Epinephrine (Xylocaine 1% With Epinephrine 1:100,000) Confirm Administered Dose 50 ml .ROUTE .STK-MED ONE Stop: 08/21/16 08:14 Last Admin: 08/21/16 10:38 Dose: 20 ml Metoprolol Succinate (Toprol Xl) 100 mg PO BID [facility] Last Admin: 08/21/16 21:57 Dose: 100 mg Naloxone HCl (Narcan) 0.4 mg IVPUSH Q2M PRN PRN Reason: Respiratory Distress Neostigmine Methylsulfate (Neostigmine) Confirm Administered Dose 5 mg .ROUTE .STK-MED ONE Stop: 08/21/16 08:18 Ondansetron HCl (Zofran) Confirm Administered Dose 4 mg .ROUTE .STK-MED ONE Stop: 08/21/16 08:18 Rocuronium [place] (Zemuron) Confirm Administered Dose 50 mg .ROUTE .STK-MED ONE Stop: 08/21/16 08:18 Tiotropium [place] (Spiriva Handihaler) 18 mcg INH DAILYRT [facility] Last Admin: 08/22/16 08:02 Dose: Not Given - Exam Quality Assessment: supplemental oxygen General: alert, oriented, cooperative, no acute distress Neck: supple Lungs: Clear to auscultation, Normal respiratory effort Cardiovascular: Regular Rate, Regular Rhythm Abdomen: soft, no distension Extremities: no cyanosis, edema (mild bilateral ankle edema) Skin: warm, dry Psy/Mental Status: alert, normal affect - Problem List & Annotations (1) Acute cholecystitis SNOMED Code(s): 33318095 Code(s): K81.0 - ACUTE CHOLECYSTITIS Status: Acute Current Visit: Yes (2) Coronary artery disease SNOMED Code(s): 03120273 Code(s): I25.10 - ATHSCL HEART DISEASE OF [place] CORONARY ARTERY W/O ANG PCTRS Status: Chronic Current Visit: Yes Qualifiers: Coronary Disease-Associated Artery/Lesion type: [place] artery [place] vs. 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 (4) CKD (chronic kidney disease) stage 3, GFR 30-59 ml/min SNOMED Code(s): 297001310 Code(s): N18.3 - CHRONIC KIDNEY DISEASE, STAGE 3 (MODERATE) Status: Chronic Current Visit: No - Problem List Review Problem List Initiated/Reviewed/Updated: Yes - My Orders Last 24 Hours: My Active Orders 08/21/16 21:00 Gabapentin [Neurontin] 400 mg PO TID Patient's Own Medication [Ptom] 15 each SUBCUT BEDTIME amLODIPine [Norvasc] 10 mg PO BEDTIME 08/22/16 07:30 GLUCOSE POC LAB TO COLLECT [POC] QIDACANDBED 08/22/16 07:45 Tiotropium [Spiriva HandiHaler] 18 mcg INH DAILYRT 08/22/16 09:00 Allopurinol [Zyloprim] 300 mg PO DAILY Patient's Own Medication [Ptom] 0 each INH DAILY Patient's Own Medication [Ptom] 0 each PO BID 08/22/16 11:42 Patient Status [ADT] Routine 08/22/16 11:44 oxyCODONE 5 - 10 mg PO Q4H PRN 08/22/16 11:46 Discontinue Telemetry Monitoring [Cardiac Monitoring Discontinue] [RC] Click to Edit 08/22/16 16:30 GLUCOSE POC LAB TO COLLECT [POC] QIDACANDBED 08/22/16 21:00 GLUCOSE POC LAB TO COLLECT [POC] QIDACANDBED Amoxicillin/Clavulanate K [Augmentin 875 MG/125 MG] 1 tab PO Q12H 08/22/16 Lunch Regular Diet [DIET] 08/23/16 07:30 GLUCOSE POC LAB TO COLLECT [POC] QIDACANDBED 08/23/16 11:30 GLUCOSE POC LAB TO COLLECT [POC] QIDACANDBED 08/23/16 16:30 GLUCOSE POC LAB TO COLLECT [POC] QIDACANDBED 08/23/16 21:00 GLUCOSE POC LAB TO COLLECT [POC] QIDACANDBED 08/24/16 07:30 GLUCOSE POC LAB TO COLLECT [POC] QIDACANDBED 08/24/16 11:30 GLUCOSE POC LAB TO COLLECT [POC] QIDACANDBED 08/24/16 16:30 GLUCOSE POC LAB TO COLLECT [POC] QIDACANDBED 08/24/16 21:00 GLUCOSE POC LAB TO COLLECT [POC] QIDACANDBED 08/25/16 07:30 GLUCOSE POC LAB TO COLLECT [POC] QIDACANDBED 08/25/16 11:30 GLUCOSE POC LAB TO COLLECT [POC] QIDACANDBED 08/25/16 16:30 GLUCOSE POC LAB TO COLLECT [POC] QIDACANDBED 08/25/16 21:00 GLUCOSE POC LAB TO COLLECT [POC] QIDACANDBED 08/26/16 07:30 GLUCOSE POC LAB TO COLLECT [POC] QIDACANDBED 08/26/16 11:30 GLUCOSE POC LAB TO COLLECT [POC] QIDACANDBED - Plan Plan:: Assessment and Plan - Acute cholecystitis - status post cholecystectomy and clinically improved since that time. Gallbladder noted to be full of gallstones at the time of removal and temporary obstruction with gallstones could explain his elevated AST and ALT numbers. Clinically seems to be improving at this time but would benefit from some additional IV antibiotics and repeat lab testing tomorrow. -Continue Amp/Sulbactam, transition to Augmentin tonight -Pain control -Saline lock IV -Repeat labs in the morning Coronary artery disease - remote history of stenting. No active anginal symptoms. -Continue medical management including beta sher Type 2 diabetes mellitus, insulin-dependent - sugars have been well controlled. -Continue home insulin dosing -Sliding-scale insulin Stage III chronic kidney disease - kidney function stable and near baseline but slightly decreased. -IV fluids -Repeat labs in the morning Maintenance issues - - DVT prophylaxis - mechanical - GI prophylaxis - PPI - Nutrition - advancing diet as tolerated Disposition - anticipate discharge to home after the hospital stay, likely tomorrow Baljinder Stratton M.D.
[2016-08-22] MEDS: oxyCODONE 5 MG Tab PO PRN ×2 (13:08→18:17)
[2016-08-22] MEDS: amLODIPine 10 MG Tab (PTOM) PO SCH (20:22)
[2016-08-22] MEDS: Amoxicillin/Clavulanate K 875-125 MG Tab PO SCH (20:23)
[2016-08-22] MEDS ORDERED: Insulin Detemir 100 Units/ML 3 ML Pen SUBCUT SCH (21:00)
[2016-08-22] MEDS: LANTUS SUBCUT SCH (21:23)
[2016-08-23] MEDS: TIOTROPIUM 18 MCG INH SCH (07:15)
[2016-08-23] MEDS: SYMBICORT 160/4.5 INHALER (PTOM) INH SCH (08:14)
[2016-08-23] MEDS: Insulin Aspart 100 Units/ML 3 ML Pen SUBCUT SCH ×2 (08:24→11:23)
[2016-08-23] MEDS: Hypromellose 0.4% Ophth Soln 15 ML Bottle EYEBOTH SCH ×2 (08:24→11:24)
[2016-08-23] MEDS: GABAPENTIN 400 MG PO SCH ×2 (08:25→13:40)
[2016-08-23] MEDS: Amoxicillin/Clavulanate K 875-125 MG Tab PO SCH (08:25)
[2016-08-23] MEDS: ALLOPURINOL 300 MG PO SCH (08:26)
[2016-08-23] MEDS: METOPROLOL 200 MG PO SCH (08:26)
[2016-08-23 11:10] VITALS: BP 145/78
--- NOTE | 2016-08-23 11:26 | PCM.SURGPN ---
- General Info Date of Service: 08/23/16 Date of Surgery/Procedure: 08/21/16 POD#: 2 Admission Diagnosis/Problem: Acute cholecystitis Functional Status: Reports: pain controlled, tolerating diet, ambulating, urinating, incentive spirometry - Review of Systems General: Reports: No Symptoms HEENT: Reports: no symptoms Pulmonary: Reports: no symptoms Cardiovascular: Reports: No Symptoms Gastrointestinal: Reports: No symptoms, Flatus, Other (Eating a regular diet without problems. ) Genitourinary: Reports: no symptoms Musculoskeletal: Reports: no symptoms Skin: Reports: no symptoms Neurological: Reports: No Symptoms Psychiatric: Reports: no symptoms - Patient Data Vitals - most recent: Last Vital Signs Temp 96.6 F 08/23/16 11:08 Pulse 64 08/23/16 11:08 Resp 16 08/23/16 11:08 BP 145/78 H 08/23/16 11:08 Pulse Ox 94 L 08/23/16 11:08 Weight - most recent: 234 lb 0.013 oz I&O - last 24 hours: Intake & Output 08/22/16 08/23/16 08/23/16 22:59 06:59 14:59 Intake Total 1059 980 Output Total 890 60 800 Balance 169 -60 180 Lab Results last 24 hrs: Laboratory Results - last 24 hr 08/23/16 08/23/16 Range/Units 05:45 05:45 WBC 12.3 H (4.5-11.0) K/uL RBC 3.90 L (4.30-5.90) M/uL Hgb 12.9 (12.0-15.0) g/dL Hct 39.1 L (40.0-54.0) % MCV 100 H (80-98) fL MCH 33 H (27-31) pg MCHC 33 (32-36) % Plt Count 259 (150-400) K/uL Sodium 137 L (140-148) mmol/L Potassium 5.1 (3.6-5.2) mmol/L Chloride 106 (100-108) mmol/L Carbon Dioxide 23 (21-32) mmol/L Anion Gap 13.1 (5.0-14.0) mmol/L BUN 34 H (7-18) mg/dL Creatinine 1.8 H (0.8-1.3) mg/dL Est Cr Clr Drug Dosing 32.58 mL/min Estimated GFR (MDRD) 36 L (>60) Glucose 136 H (74-106) mg/dL Calcium 8.3 L (8.5-10.1) mg/dL Total Bilirubin 0.4 (0.2-1.0) mg/dL AST 33 (15-37) U/L ALT 83 H (12-78) U/L Alkaline Phosphatase 132 H (46-116) U/L Total Protein 6.0 L (6.4-8.2) g/dL Albumin 2.4 L (3.4-5.0) g/dL Globulin 3.6 H (2.3-3.5) g/dL Albumin/Globulin Ratio 0.7 L (1.2-2.2) Walter Results last 24 hrs: Microbiology 08/21/16 11:55 Gram Stain - Final Gallbladder Wound Culture - Preliminary NO GROWTH AFTER 2 DAYS Anaerobic Culture - Preliminary NO GROWTH AFTER 2 DAYS Med Orders - Current: Current Medications Allopurinol (Zyloprim) 300 mg PO DAILY [facility] Last Admin: 08/23/16 08:26 Dose: 300 mg Amlodipine Besylate (Norvasc) 10 mg PO BEDTIME [facility] Last Admin: 08/22/16 20:22 Dose: 10 mg Amoxicillin/Clavulanate Potassium (Augmentin 875 Mg/125 Mg) 1 tab PO Q12H [facility] Last Admin: 08/23/16 08:25 Dose: 1 tab Artificial Tears (Natural Balance Tears) 0 ml EYEBOTH QID [facility] Last Admin: 08/23/16 08:24 Dose: Not Given Gabapentin (Neurontin) 400 mg PO TID [facility] Last Admin: 08/23/16 08:25 Dose: 400 mg Insulin Aspart (Novolog) 0 unit SUBCUT WITHMEALSANDBED [facility] PRN Reason: Protocol Last Admin: 08/23/16 08:24 Dose: Not Given Naloxone HCl (Narcan) 0.1 mg IVPUSH Q5M PRN PRN Reason: Respiratory Distress Ondansetron HCl (Zofran) 4 mg IVPUSH Q6H PRN PRN Reason: Nausea/Vomiting Oxycodone HCl (Oxycodone) 5 - 10 mg PO Q4H PRN PRN Reason: Pain Last Admin: 08/22/16 18:17 Dose: 10 mg Lantus Pen Ptom* () 15 each SUBCUT BEDTIME [facility] Last Admin: 08/22/16 21:23 Dose: 15 each Metoprolol Xl 200mg (Tab (Ptom)) 0 each PO BID [facility] Last Admin: 08/23/16 08:26 Dose: 1 each Symbicort 160/4.5 (Inhaler (Ptom)) 0 each INH DAILY [facility] Last Admin: 08/23/16 08:14 Dose: 2 each Senna/Docusate Sodium (Senna Plus) 1 tab PO BID PRN PRN Reason: Constipation Last Admin: 08/22/16 18:21 Dose: 1 tab Tiotropium [place] (Spiriva Handihaler) 18 mcg INH DAILYRT [facility] Last Admin: 08/23/16 07:15 Dose: Not Given Discontinued Medications Acetaminophen (Tylenol) 650 mg PO Q4H PRN PRN Reason: Pain/Fever Albuterol/Ipratropium (Duoneb 3.0-0.5 Mg/3 Ml) 3 ml NEB ONETIME ONE Stop: 08/21/16 08:02 Last Admin: 08/21/16 08:11 Dose: 3 ml Albuterol/Ipratropium (Duoneb 3.0-0.5 Mg/3 Ml) Confirm Administered Dose 3 ml .ROUTE .STK-MED ONE Stop: 08/21/16 08:08 Last Admin: 08/21/16 09:29 Dose: Not Given Albuterol/Ipratropium (Duoneb 3.0-0.5 Mg/3 Ml) 3 ml NEB ONETIME ONE Stop: 08/21/16 11:03 Last Admin: 08/21/16 11:13 Dose: 3 ml Allopurinol (Zyloprim) 300 mg PO DAILY [facility] Last Admin: 08/21/16 12:13 Dose: 300 mg Amlodipine Besylate (Norvasc) 10 mg PO BEDTIME [facility] Bupivacaine HCl (Marcaine 0.5%) Confirm Administered Dose 50 ml .ROUTE .STK-MED ONE Stop: 08/21/16 08:14 Last Admin: 08/21/16 10:38 Dose: 20 ml Dexamethasone (Dexamethasone) Confirm Administered Dose 4 mg .ROUTE .STK-MED ONE Stop: 08/21/16 08:18 Etomidate (Amidate) Confirm Administered Dose 20 mg .ROUTE .STK-MED ONE Stop: 08/21/16 08:18 Fentanyl (Sublimaze) Confirm Administered Dose 250 mcg .ROUTE .STK-MED ONE Stop: 08/21/16 08:18 Fentanyl (Sublimaze) Confirm Administered Dose 250 mcg .ROUTE .STK-MED ONE Stop: 08/21/16 09:14 Gabapentin (Neurontin) 400 mg PO TID [facility] Last Admin: 08/21/16 17:43 Dose: 400 mg Glycopyrrolate () Confirm Administered Dose 1 mg .ROUTE .STK-MED ONE Stop: 08/21/16 08:18 Hydromorphone HCl (Dilaudid) 1 mg IM ONETIME ONE Stop: 08/21/16 00:00 Last Admin: 08/21/16 00:02 Dose: 1 mg Hydromorphone HCl (Dilaudid [employer] 15 Mg In Ns 30 Ml) 0 mg IV ASDIRECTED PRN; Protocol PRN Reason: Pain Last Admin: 08/21/16 02:46 Dose: 15 mg Hydroxyzine HCl (Vistaril) 100 mg IM ONETIME ONE Stop: 08/21/16 11:08 Last Admin: 08/21/16 11:14 Dose: 100 mg Ampicillin Sodium/Sulbactam (Sodium 1.5 gm/ Sodium Chloride) 50 mls @ 100 mls/ hr IV Q6H [facility] Stop: 08/22/16 20:00 Last Admin: 08/22/16 14:30 Dose: 100 mls/hr Sodium Chloride (Normal Saline) 1,000 mls @ 200 mls/hr IV ASDIRECTED [facility] Last Admin: 08/21/16 07:23 Dose: 200 mls/hr Potassium Chloride/Sodium Chloride (1/2 Ns With 20 Meq Kcl) 1,000 mls @ 125 mls /hr IV ASDIRECTED [facility] Last Admin: 08/22/16 04:35 Dose: 125 mls/hr Sodium Chloride (Sodium Chloride 0.45%) 1,000 mls @ 25 mls/hr IV ASDIRECTED [facility] Last Admin: 08/22/16 07:04 Dose: 25 mls/hr Insulin Detemir (Levemir) 15 unit SUBCUT BEDTIME [facility] Last Admin: 08/21/16 21:59 Dose: Not Given Lidocaine/Epinephrine (Xylocaine 1% With Epinephrine 1:100,000) Confirm Administered Dose 50 ml .ROUTE .STK-MED ONE Stop: 08/21/16 08:14 Last Admin: 08/21/16 10:38 Dose: 20 ml Metoprolol Succinate (Toprol Xl) 100 mg PO BID [facility] Last Admin: 08/21/16 21:57 Dose: 100 mg Naloxone HCl (Narcan) 0.4 mg IVPUSH Q2M PRN PRN Reason: Respiratory Distress Neostigmine Methylsulfate (Neostigmine) Confirm Administered Dose 5 mg .ROUTE .STK-MED ONE Stop: 08/21/16 08:18 Ondansetron HCl (Zofran) Confirm Administered Dose 4 mg .ROUTE .STK-MED ONE Stop: 08/21/16 08:18 Rocuronium [place] (Zemuron) Confirm Administered Dose 50 mg .ROUTE .STK-MED ONE Stop: 08/21/16 08:18 Tiotropium [place] (Spiriva Handihaler) 18 mcg INH DAILYRT [facility] Last Admin: 08/22/16 08:02 Dose: Not Given - Exam Wound/Incisions: healing well, drainage (DAMARI 190 ml's per 24 hours. Appears serosanquinous. ) Quality Assessment: supplemental oxygen (At night. ), DVT prophylaxis General: alert, oriented, cooperative, no acute distress Lungs: Clear to auscultation, Normal respiratory effort Cardiovascular: Regular Rate, Regular Rhythm, No Murmurs Abdomen: bowel sounds present, soft, no tenderness, no distension, other ( Ecchymosis. ) Skin: warm, dry, intact Psy/Mental Status: alert, normal affect, normal mood - Problem List & Annotations (1) Acute cholecystitis SNOMED Code(s): 95512446 Code(s): K81.0 - ACUTE CHOLECYSTITIS Status: Acute Current Visit: Yes - Problem List Review Problem List Initiated/Reviewed/Updated: Yes - My Orders Last 24 Hours: Active Orders 24 hr Category Date Time Status Patient Status [ADT] Routine ADT 08/22/16 11:42 Active Regular Diet [DIET] Diet 08/22/16 Lunch Active GLUCOSE POC LAB TO COLLECT [POC] QIDACANDBED Lab 08/23/16 11:30 Ordered GLUCOSE POC LAB TO COLLECT [POC] QIDACANDBED Lab 08/23/16 16:30 Ordered GLUCOSE POC LAB TO COLLECT [POC] QIDACANDBED Lab 08/23/16 21:00 Ordered GLUCOSE POC LAB TO COLLECT [POC] QIDACANDBED Lab 08/24/16 07:30 Ordered GLUCOSE POC LAB TO COLLECT [POC] QIDACANDBED Lab 08/24/16 11:30 Ordered GLUCOSE POC LAB TO COLLECT [POC] QIDACANDBED Lab 08/24/16 16:30 Ordered GLUCOSE POC LAB TO COLLECT [POC] QIDACANDBED Lab 08/24/16 21:00 Ordered GLUCOSE POC LAB TO COLLECT [POC] QIDACANDBED Lab 08/25/16 07:30 Ordered GLUCOSE POC LAB TO COLLECT [POC] QIDACANDBED Lab 08/25/16 11:30 Ordered GLUCOSE POC LAB TO COLLECT [POC] QIDACANDBED Lab 08/25/16 16:30 Ordered GLUCOSE POC LAB TO COLLECT [POC] QIDACANDBED Lab 08/25/16 21:00 Ordered GLUCOSE POC LAB TO COLLECT [POC] QIDACANDBED Lab 08/26/16 07:30 Ordered GLUCOSE POC LAB TO COLLECT [POC] QIDACANDBED Lab 08/26/16 11:30 Ordered Amoxicillin/Clavulanate K [Augmentin 875 MG/125 MG] Med 08/22/16 21:00 Active 1 tab PO Q12H Docusate Sodium/Sennosides [Senna Plus] Med 08/22/16 13:27 Active 1 tab PO BID PRN oxyCODONE Med 08/22/16 11:44 Active 5 - 10 mg PO Q4H PRN Medication Orders Allopurinol (Zyloprim) 300 mg PO DAILY [facility] Last Admin: 08/23/16 08:26 Dose: 300 mg Admin: 08/22/16 09:04 Dose: 300 mg Amlodipine Besylate (Norvasc) 10 mg PO BEDTIME [facility] Last Admin: 08/22/16 20:22 Dose: 10 mg Admin: 08/21/16 21:56 Dose: 10 mg Amoxicillin/Clavulanate Potassium (Augmentin 875 Mg/125 Mg) 1 tab PO Q12H [facility] Last Admin: 08/23/16 08:25 Dose: 1 tab Admin: 08/22/16 20:23 Dose: 1 tab Artificial Tears (Natural Balance Tears) 0 ml EYEBOTH QID [facility] Last Admin: 08/23/16 08:24 Dose: Not Given Admin: 08/22/16 21:24 Dose: 1 drop Admin: 08/22/16 16:45 Dose: 1 drop Admin: 08/22/16 09:07 Dose: 1 drop Admin: 08/22/16 05:50 Dose: Admin: 08/22/16 04:43 Dose: 1 drop Admin: 08/21/16 21:56 Dose: 1 drop Admin: 08/21/16 17:43 Dose: 1 drop Admin: 08/21/16 12:13 Dose: 1 drop Gabapentin (Neurontin) 400 mg PO TID [facility] Last Admin: 08/23/16 08:25 Dose: 400 mg Admin: 08/22/16 20:21 Dose: 400 mg Admin: 08/22/16 14:32 Dose: 400 mg Admin: 08/22/16 09:04 Dose: 400 mg Admin: 08/21/16 21:55 Dose: 400 mg Insulin Aspart (Novolog) 0 unit SUBCUT WITHMEALSANDBED [facility] PRN Reason: Protocol Last Admin: 08/23/16 08:24 Dose: Not Given Admin: 08/22/16 21:22 Dose: 2 units Admin: 08/22/16 16:45 Dose: 4 units Admin: 08/22/16 12:54 Dose: 2 units Admin: 08/22/16 09:02 Dose: Not Given Admin: 08/21/16 21:54 Dose: 4 units Admin: 08/21/16 17:43 Dose: 4 units Admin: 08/21/16 12:20 Dose: 6 units Admin: 08/21/16 12:05 Dose: Naloxone HCl (Narcan) 0.1 mg IVPUSH Q5M PRN PRN Reason: Respiratory Distress Ondansetron HCl (Zofran) 4 mg IVPUSH Q6H PRN PRN Reason: Nausea/Vomiting Oxycodone HCl (Oxycodone) 5 - 10 mg PO Q4H PRN PRN Reason: Pain Last Admin: 08/22/16 18:17 Dose: 10 mg Admin: 08/22/16 13:08 Dose: 10 mg Lantus Pen Ptom* () 15 each SUBCUT BEDTIME [facility] Last Admin: 08/22/16 21:23 Dose: 15 each Admin: 08/21/16 22:04 Dose: Admin: 08/21/16 21:59 Dose: 15 each Metoprolol Xl 200mg (Tab (Ptom)) 0 each PO BID [facility] Last Admin: 08/23/16 08:26 Dose: 1 each Admin: 08/22/16 20:20 Dose: 0.5 each Admin: 08/22/16 09:05 Dose: 0.5 each Symbicort 160/4.5 (Inhaler (Ptom)) 0 each INH DAILY [facility] Last Admin: 08/23/16 08:14 Dose: 2 each Admin: 08/22/16 08:03 Dose: 2 each Senna/Docusate Sodium (Senna Plus) 1 tab PO BID PRN PRN Reason: Constipation Last Admin: 08/22/16 18:21 Dose: 1 tab Tiotropium [place] (Spiriva Handihaler) 18 mcg INH DAILYRT [facility] Last Admin: 08/23/16 07:15 Dose: Admin: 08/22/16 08:06 Dose: - Assessment Assessment (Free Text/Narrative):: His DAMARI output is too high to remove. - Plan Plan (Free Text/Narrative):: OK with me if he goes home with the DAMARI. He demonstrated that he can care for it and record its output.
--- NOTE | 2016-08-23 12:14 | PCM.DCSUM1 ---
Discharge Summary - Hospital Course Brief History: 85 year old male with history of coronary artery disease, stage III chronic kidney disease and diabetes who presented with epigastric abdominal pain and was admitted for evaluation of probable acute cholecystitis. - Discharge Data Discharge Date: 08/23/16 Discharge Disposition: Home, Self-Care 01 Condition: Good - Discharge Diagnosis/Problem(s) (1) Cholelithiasis and acute cholecystitis with obstruction SNOMED Code(s): 093655330 ICD Code: K80.01 - CALCULUS OF GALLBLADDER W ACUTE CHOLECYSTITIS W OBSTRUCTION Status: Acute (2) Acute cholecystitis SNOMED Code(s): 08273716 ICD Code: K81.0 - ACUTE CHOLECYSTITIS Status: Acute (3) Coronary artery disease SNOMED Code(s): 50012941 ICD Code: I25.10 - ATHSCL HEART DISEASE OF [place] CORONARY ARTERY W/O ANG PCTRS Status: Chronic Qualifiers: Coronary Disease-Associated Artery/Lesion type: [place] artery [place] vs. 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 (5) CKD (chronic kidney disease) stage 3, GFR 30-59 ml/min SNOMED Code(s): 118197848 ICD Code: N18.3 - CHRONIC KIDNEY DISEASE, STAGE 3 (MODERATE) Status: Chronic - Patient Summary/Data Consults: Consultations 08/21/16 07:14 Consult to Physician [CONS] Routine Consulting Provider: Wilton Hodge Courtesy Call Completed to Consulting Physician: Yes Reason for Consult: acute cholecystitis Person Notified: BDB Date Notified: 08/21/16 Special Instructions: will see for possible cholecystectomy Labs Pending at D/C: Final results of cultures with no growth at the time of discharge Hospital Course: Jerome presented to the emergency room with epigastric abdominal pain and nausea. Workup in the emergency room revealed a mild elevation of bilirubin as well as AST and ALT. There was concern for acute cholecystitis but also some concern this could be cardiac in nature. EKG and troponin in the emergency room were unremarkable. Ultrasound of the right upper quadrant revealed a distended gallbladder with apparent sludge and borderline wall thickening. He was empirically started on antibiotics and IV fluids and admitted to the hospital for pain control and chest pain rule out as well as surgical consultation. Serial troponin levels were undetectable. Morning after admission Dr. Hodge was consulted and cholecystectomy was recommended. During the cholecystectomy very small gallstones were noted rather than sludge in the gallbladder. An intraoperative cholangiogram was performed and did not show evidence for obstructing stone. He tolerated the surgery well. In the postoperative course he did not have acute events. He did not have any fevers after the surgery. His pain improved fairly quickly. He was noted to have nearly 200 mL of drainage from the DAMARI drain that was left in place following the procedure in the 24 hours postoperatively. His liver enzymes trended down following the procedure. His pain and nausea have resolved. He has tolerated advances to soft diet with no difficulty. Cultures have all been negative. I believe he is safe for outpatient management at this point. He has minimal pain and has not had any fevers or infectious symptoms. He is tolerating his diet and ambulating safely. His diabetes has been well controlled. We did not send him home with antibiotics but did send him home with a limited number of pain medications. He does still have a DAMARI drain in place and this will remain in place until he follows up with Dr. Hodge in 3 days time. Also noted during the hospital stay was nocturnal hypoxia. He does have a diagnosis of obstructive sleep apnea that has not tolerated before meals Pap in the past. We did note that with supplemental oxygen and his oxygenation improved to above 90%. We did obtain saturations that would qualify him for home oxygen with a prolonged oxygen desaturation noted the night prior to discharge. He was interested in supplemental oxygen at home and this was set up prior to his discharge. I believe that the oxygen supplementation will provide benefit for both his energy and cardiovascular health as it helps him to reduce or eliminate nocturnal hypoxia. - Patient Instructions Diet: Diabetic Diet Diet, Other: soft and bland foods for the next two weeks Activity: As Tolerated Driving: Do Not Drive (if taking pain pills) Showering/Bathing: May Shower Notify Provider of: Fever, Increased Pain, Nausea and/or Vomiting Other/Special Instructions: 1. You were in the hospital for management of acute cholecystitis caused by cholelithiasis (gallstones). Your gallbladder has been removed surgically. I would recommend soft and bland foods for the next 2 weeks. Activity can be as tolerated but do not lift more than 10 pounds for 2 weeks. 2. Please keep track of the drainage from your DAMARI drain as instructed by Dr. Hodge and bring these records to your clinic visit with him next Friday. 3. During your hospital stay we noticed that your oxygen numbers dropped while you were sleeping. You have qualified to receive home oxygen to use while you sleep and this will be provided to you at the time of hospital discharge. 4. Please seek medical attention if you develop fever greater than 101, develop nausea with vomiting or you have severe abdominal pain. - Discharge Plan Prescriptions/Med Rec: oxyCODONE 5 mg PO Q4H PRN #10 tablet PRN Reason: Pain Home Medications: Home Meds Allopurinol [Zyloprim] 300 mg PO DAILY 06/01/14 [History] Colchicine 0.6 mg PO BID PRN 06/01/14 [History] Gabapentin [Neurontin] 400 mg PO TID 06/01/14 [History] Omeprazole [Prilosec] 20 mg PO DAILY 06/01/14 [History] Hypromellose [Artificial Tears] 1 drop EYEBOTH QID 06/03/14 [History] Insulin Aspart [Novolog Flexpen] 10 unit SQ BID 06/03/14 [History] Insulin Glarg,Human.Rec.Analog [Lantus] 30 unit SQ BEDTIME 06/03/14 [History] Polyethylene Glycol 8000 [Polyethylene Glycol] 17 gm PO DAILY 06/03/14 [History] amLODIPine Besylate [Amlodipine Besylate] 10 mg PO BEDTIME 06/03/14 [History] Budesonide/Formoterol [Symbicort 80-4.5 MCG] 2 puff INH DAILY 10/11/15 [History] Hydrocortisone [Hydrocortisone 2.5% Crm] 1 applic RECTAL BEDTIME 10/11/15 [ History] Dextrose [Glucose] 4 tab PO DAILY PRN 04/12/16 [History] Metoprolol Succinate 100 mg PO BID 08/20/16 [History] Tiotropium [Spiriva HandiHaler] 18 mcg INH DAILY 08/20/16 [History] oxyCODONE 5 mg PO Q4H PRN #10 tablet 08/23/16 [Rx] Patient Handouts: Preventing Constipation After Surgery, Surgical Drain Home Care, Laparoscopic Cholecystectomy, Care After, [id number], Oxycodone tablets or capsules Referrals: Wilton Hodge MD [Physician] - 08/26/16 1:45 pm Mario Kurtz MD [Primary Care Provider] - 09/10/16 1:30 pm - Discharge Summary/Plan Comment DC Time >30 min.: No (25) - Patient Data Vitals - Most Recent: Last Vital Signs Temp 35.9 C 08/23/16 11:08 Pulse 64 08/23/16 11:08 Resp 16 08/23/16 11:08 BP 145/78 H 08/23/16 11:08 Pulse Ox 94 L 08/23/16 11:08 Weight - Most Recent: 106.141 kg I&O - Last 24 hours: Intake & Output 08/22/16 08/23/16 08/23/16 22:59 06:59 14:59 Intake Total 1059 980 Output Total 890 60 800 Balance 169 -60 180 Lab Results - Last 24 hrs: Laboratory Results - last 24 hr 08/23/16 08/23/16 Range/Units 05:45 05:45 WBC 12.3 H (4.5-11.0) K/uL RBC 3.90 L (4.30-5.90) M/uL Hgb 12.9 (12.0-15.0) g/dL Hct 39.1 L (40.0-54.0) % MCV 100 H (80-98) fL MCH 33 H (27-31) pg MCHC 33 (32-36) % Plt Count 259 (150-400) K/uL Sodium 137 L (140-148) mmol/L Potassium 5.1 (3.6-5.2) mmol/L Chloride 106 (100-108) mmol/L Carbon Dioxide 23 (21-32) mmol/L Anion Gap 13.1 (5.0-14.0) mmol/L BUN 34 H (7-18) mg/dL Creatinine 1.8 H (0.8-1.3) mg/dL Est Cr Clr Drug Dosing 32.58 mL/min Estimated GFR (MDRD) 36 L (>60) Glucose 136 H (74-106) mg/dL Calcium 8.3 L (8.5-10.1) mg/dL Total Bilirubin 0.4 (0.2-1.0) mg/dL AST 33 (15-37) U/L ALT 83 H (12-78) U/L Alkaline Phosphatase 132 H (46-116) U/L Total Protein 6.0 L (6.4-8.2) g/dL Albumin 2.4 L (3.4-5.0) g/dL Globulin 3.6 H (2.3-3.5) g/dL Albumin/Globulin Ratio 0.7 L (1.2-2.2) JUAREZ Results - Last 24 hrs: Microbiology 08/21/16 11:55 Gram Stain - Final Gallbladder Wound Culture - Preliminary NO GROWTH AFTER 2 DAYS Anaerobic Culture - Preliminary NO GROWTH AFTER 2 DAYS Med Orders - Current: Current Medications Allopurinol (Zyloprim) 300 mg PO DAILY [facility] Last Admin: 08/23/16 08:26 Dose: 300 mg Amlodipine Besylate (Norvasc) 10 mg PO BEDTIME [facility] Last Admin: 08/22/16 20:22 Dose: 10 mg Amoxicillin/Clavulanate Potassium (Augmentin 875 Mg/125 Mg) 1 tab PO Q12H [facility] Last Admin: 08/23/16 08:25 Dose: 1 tab Artificial Tears (Natural Balance Tears) 0 ml EYEBOTH QID [facility] Last Admin: 08/23/16 11:24 Dose: 1 drop Gabapentin (Neurontin) 400 mg PO TID [facility] Last Admin: 08/23/16 08:25 Dose: 400 mg Insulin Aspart (Novolog) 0 unit SUBCUT WITHMEALSANDBED [facility] PRN Reason: Protocol Last Admin: 08/23/16 11:23 Dose: Not Given Naloxone HCl (Narcan) 0.1 mg IVPUSH Q5M PRN PRN Reason: Respiratory Distress Ondansetron HCl (Zofran) 4 mg IVPUSH Q6H PRN PRN Reason: Nausea/Vomiting Oxycodone HCl (Oxycodone) 5 - 10 mg PO Q4H PRN PRN Reason: Pain Last Admin: 08/22/16 18:17 Dose: 10 mg Lantus Pen Ptom* () 15 each SUBCUT BEDTIME [facility] Last Admin: 08/22/16 21:23 Dose: 15 each Metoprolol Xl 200mg (Tab (Ptom)) 0 each PO BID [facility] Last Admin: 08/23/16 08:26 Dose: 1 each Symbicort 160/4.5 (Inhaler (Ptom)) 0 each INH DAILY [facility] Last Admin: 08/23/16 08:14 Dose: 2 each Senna/Docusate Sodium (Senna Plus) 1 tab PO BID PRN PRN Reason: Constipation Last Admin: 08/22/16 18:21 Dose: 1 tab Tiotropium [place] (Spiriva Handihaler) 18 mcg INH DAILYRT [facility] Last Admin: 08/23/16 07:15 Dose: Not Given Discontinued Medications Acetaminophen (Tylenol) 650 mg PO Q4H PRN PRN Reason: Pain/Fever Albuterol/Ipratropium (Duoneb 3.0-0.5 Mg/3 Ml) 3 ml NEB ONETIME ONE Stop: 08/21/16 08:02 Last Admin: 08/21/16 08:11 Dose: 3 ml Albuterol/Ipratropium (Duoneb 3.0-0.5 Mg/3 Ml) Confirm Administered Dose 3 ml .ROUTE .STK-MED ONE Stop: 08/21/16 08:08 Last Admin: 08/21/16 09:29 Dose: Not Given Albuterol/Ipratropium (Duoneb 3.0-0.5 Mg/3 Ml) 3 ml NEB ONETIME ONE Stop: 08/21/16 11:03 Last Admin: 08/21/16 11:13 Dose: 3 ml Allopurinol (Zyloprim) 300 mg PO DAILY [facility] Last Admin: 08/21/16 12:13 Dose: 300 mg Amlodipine Besylate (Norvasc) 10 mg PO BEDTIME [facility] Bupivacaine HCl (Marcaine 0.5%) Confirm Administered Dose 50 ml .ROUTE .STK-MED ONE Stop: 08/21/16 08:14 Last Admin: 08/21/16 10:38 Dose: 20 ml Dexamethasone (Dexamethasone) Confirm Administered Dose 4 mg .ROUTE .STK-MED ONE Stop: 08/21/16 08:18 Etomidate (Amidate) Confirm Administered Dose 20 mg .ROUTE .STK-MED ONE Stop: 08/21/16 08:18 Fentanyl (Sublimaze) Confirm Administered Dose 250 mcg .ROUTE .STK-MED ONE Stop: 08/21/16 08:18 Fentanyl (Sublimaze) Confirm Administered Dose 250 mcg .ROUTE .STK-MED ONE Stop: 08/21/16 09:14 Gabapentin (Neurontin) 400 mg PO TID [facility] Last Admin: 08/21/16 17:43 Dose: 400 mg Glycopyrrolate () Confirm Administered Dose 1 mg .ROUTE .STK-MED ONE Stop: 08/21/16 08:18 Hydromorphone HCl (Dilaudid) 1 mg IM ONETIME ONE Stop: 08/21/16 00:00 Last Admin: 08/21/16 00:02 Dose: 1 mg Hydromorphone HCl (Dilaudid Front Tender 15 Mg In Ns 30 Ml) 0 mg IV ASDIRECTED PRN; Protocol PRN Reason: Pain Last Admin: 08/21/16 02:46 Dose: 15 mg Hydroxyzine HCl (Vistaril) 100 mg IM ONETIME ONE Stop: 08/21/16 11:08 Last Admin: 08/21/16 11:14 Dose: 100 mg Ampicillin Sodium/Sulbactam (Sodium 1.5 gm/ Sodium Chloride) 50 mls @ 100 mls/ hr IV Q6H [facility] Stop: 08/22/16 20:00 Last Admin: 08/22/16 14:30 Dose: 100 mls/hr Sodium Chloride (Normal Saline) 1,000 mls @ 200 mls/hr IV ASDIRECTED [facility] Last Admin: 08/21/16 07:23 Dose: 200 mls/hr Potassium Chloride/Sodium Chloride (1/2 Ns With 20 Meq Kcl) 1,000 mls @ 125 mls /hr IV ASDIRECTED [facility] Last Admin: 08/22/16 04:35 Dose: 125 mls/hr Sodium Chloride (Sodium Chloride 0.45%) 1,000 mls @ 25 mls/hr IV ASDIRECTED [facility] Last Admin: 08/22/16 07:04 Dose: 25 mls/hr Insulin Detemir (Levemir) 15 unit SUBCUT BEDTIME [facility] Last Admin: 08/21/16 21:59 Dose: Not Given Lidocaine/Epinephrine (Xylocaine 1% With Epinephrine 1:100,000) Confirm Administered Dose 50 ml .ROUTE .STK-MED ONE Stop: 08/21/16 08:14 Last Admin: 08/21/16 10:38 Dose: 20 ml Metoprolol Succinate (Toprol Xl) 100 mg PO BID [facility] Last Admin: 08/21/16 21:57 Dose: 100 mg Naloxone HCl (Narcan) 0.4 mg IVPUSH Q2M PRN PRN Reason: Respiratory Distress Neostigmine Methylsulfate (Neostigmine) Confirm Administered Dose 5 mg .ROUTE .STK-MED ONE Stop: 08/21/16 08:18 Ondansetron HCl (Zofran) Confirm Administered Dose 4 mg .ROUTE .STK-MED ONE Stop: 08/21/16 08:18 Rocuronium [place] (Zemuron) Confirm Administered Dose 50 mg .ROUTE .STK-MED ONE Stop: 08/21/16 08:18 Tiotropium [place] (Spiriva Handihaler) [facility] Admin: 08/22/16 08:02 Dose: Not Given *Q Meaningful Use (DIS) - VTE *Q VTE Criteria *Q: VTE Pharmacological Contraindications *Q: Patient Scheduled Surgery - Stroke *Q Stroke Criteria *Q: - AMI *Q AMI Criteria *Q:
== END 2016-08-23 14:22 | disposition home or self-care (01) ==
LOC: JP.ED 22:50 → JP.MS 08-21 01:25
PROVIDERS: ADMIT Internal Medicine; ATTEND Internal Medicine
DX: K80.12 Calculus of gallbladder with acute and chronic cholecystitis without obstruction (principal); J45.909 Unspecified asthma, uncomplicated; I25.10 Atherosclerotic heart disease of native coronary artery without angina pectoris; I25.2 Old myocardial infarction; K21.9 Gastro-esophageal reflux disease without esophagitis; I12.9 Hypertensive chronic kidney disease with stage 1 through stage 4 chronic kidney disease, or unspecified chronic kidney disease; E11.22 Type 2 diabetes mellitus with diabetic chronic kidney disease; N18.3 Chronic kidney disease, stage 3 (moderate); F41.9 Anxiety disorder, unspecified; G47.30 Sleep apnea, unspecified; M10.9 Gout, unspecified; F32.9 Major depressive disorder, single episode, unspecified; E66.9 Obesity, unspecified; E78.00 Pure hypercholesterolemia, unspecified; Z79.4 Long term (current) use of insulin; Z79.82 Long term (current) use of aspirin; Z79.899 Other long term (current) drug therapy; Z95.1 Presence of aortocoronary bypass graft; Z90.49 Acquired absence of other specified parts of digestive tract; Z98.890 Other specified postprocedural states
CPT/HCPCS: 36415; 47563; 71010; 76705; 80053; 80076; 82150; 82962; 83690; 84484; 85025; 85027; 87070; 87075; 87205; 88304; 93005; 94640; 94664; 94762; 99285; A9270; J0287; J1100; J1170; J2405; J3010; J3410; J3480; J3490; J7040; J7050; J7620; 93010; 96361; 96365; 96366; 96367; 96372; 96374; 99217; 99220; 99225; G0378

== ENCOUNTER 2016-12-31 12:39 | Emergency (ER) | payer MEDICARE, OTHER ==
[2016-12-31] MEDS ORDERED: Cyclobenzaprine 10 MG Tab PO ONE (13:37)
[2016-12-31] MEDS ORDERED: Ketorolac 60 MG/2 ML SDV IM ONE (13:37)
--- NOTE | 2016-12-31 13:48 | EDM.PDOC ---
ED HPI GENERAL MEDICAL PROBLEM - General Chief Complaint: Back Pain or Injury Stated Complaint: BACK PAIN Time Seen by Provider: 12/31/16 13:28 Source of Information: Reports: Patient, EMS, RN Notes Reviewed History Limitations: Reports: No Limitations - History of Present Illness INITIAL COMMENTS - FREE TEXT/NARRATIVE: 86-year-old gentleman presents emergency department today with complaint of low back pain, he does have a history of lumbar stenosis actually underwent MRI of this week was done in [place] 2 days prior results are unavailable, he states he did trip going up the stairs and lost his balance momentarily causing a jarring to his low back he has had significant pain in the lumbar region no loss of bowel or bladder no fevers Lower Back Pain Score (Numeric/FACES): 5 - Related Data Allergies Allergy/AdvReac Type Severity Reaction Status Date / Time Rxautiy-Clf-Uqj Reductase Allergy Severe Chest Verified 12/31/16 13:11 Inhibitor Tightness candesartan Allergy Cannot Verified 12/31/16 13:11 Remember finasteride Allergy Cannot Verified 12/31/16 13:11 Remember lisinopril Allergy Confusion Verified 12/31/16 13:11 asparagus AdvReac Other Verified 12/31/16 13:11 aspirin AdvReac Bleeding Verified 12/31/16 13:11 broccoli AdvReac Other Verified 12/31/16 13:11 cauliflower AdvReac Other Verified 12/31/16 13:11 Home Meds: Home Meds Allopurinol [Zyloprim] 300 mg PO DAILY 06/01/14 [History] Colchicine 0.6 mg PO BID PRN 06/01/14 [History] Gabapentin [Neurontin] 400 mg PO TID 06/01/14 [History] Omeprazole [Prilosec] 20 mg PO DAILY 06/01/14 [History] Hypromellose [Artificial Tears] 1 drop EYEBOTH QID 06/03/14 [History] Insulin Aspart [Novolog Flexpen] 10 unit SQ BID 06/03/14 [History] Insulin Glarg,Human.Rec.Analog [Lantus] 30 unit SQ BEDTIME 06/03/14 [History] Polyethylene Glycol 8000 [Polyethylene Glycol] 17 gm PO DAILY 06/03/14 [History] amLODIPine Besylate [Amlodipine Besylate] 10 mg PO BEDTIME 04/17/15 [History] Budesonide/Formoterol [Symbicort 80-4.5 MCG] 2 puff INH DAILY 10/11/15 [History] Hydrocortisone [Hydrocortisone 2.5% Crm] 1 applic RECTAL BEDTIME 10/11/15 [ History] Dextrose [Glucose] 4 tab PO DAILY PRN 04/12/16 [History] Metoprolol Succinate 100 mg PO DAILY 08/20/16 [History] Tiotropium [Spiriva HandiHaler] 18 mcg INH DAILY 08/20/16 [History] Past Medical History HEENT History: Reports: Allergic Rhinitis, Cataract, Impaired Vision, Sinusitis Cardiovascular History: Reports: Bypass, CAD, High Cholesterol, Hypertension, [place] Other Cardiovascular History: left above the knee arterial stenosis; multiple [place] 's Respiratory History: Reports: Bronchitis, Recurrent, COPD, Pneumonia, Recurrent , Sleep Apnea Other Respiratory History: chronic cough. oxygen at night Gastrointestinal History: Reports: Cholelithiasis, GERD Other Gastrointestinal History: umbilical hernia Genitourinary History: Reports: Chronic Renal Insuffiency, Prostate Disorder, Renal Calculus Musculoskeletal History: Reports: Back Pain, Chronic, Fracture, Gout, Osteoarthritis Other Musculoskeletal History: neck fractue Neurological History: Reports: TIA Other Neuro History: neck fracture Endocrine/Metabolic History: Reports: Diabetes, Type II, Obesity/BMI 30+ Hematologic History: Reports: Blood Transfusion(s) Other Hematologic History: chronic leucytic leukemia, chronic lymes Oncologic (Cancer) History: Reports: Basal Cell Carcinoma, Leukemia, Other (See Below) Other Oncologic History: CLL Dermatologic History: Reports: Other (See Below) Other Dermatologic History: skin cancer removal - Infectious Disease History Infectious Disease History: Reports: C-Difficile, Measles, Mumps - Past Surgical History HEENT Surgical History: Reports: Oral Surgery Cardiovascular Surgical History: Reports: Carotid Stents, Coronary Artery Bypass , Percutaneous Transluminal Angioplasty GI Surgical History: Reports: Appendectomy, Cholecystectomy, Colonoscopy, Hernia , Abdominal Male Surgical History: Reports: Lithotripsy (ESWL), TURP-Transurethral Resection of Prostate, Other (See Below) Other Male Surgeries/Procedures: bladder surgery. bleeding polyps from bladder and prostrate Social & Family History - Family History Cardiac: Reports: CAD - Tobacco Use Smoking Status *Q: Never Smoker Second Hand Smoke Exposure: No - Caffeine Use Caffeine Use: Reports: Soda Other Caffeine Use: small amount - Alcohol Use Days Per Week of Alcohol Use: 0 - Recreational Drug Use Recreational Drug Use: No ED ROS GENERAL - Review of Systems Review Of Systems: See Below Constitutional: Reports: No Symptoms Respiratory: Reports: No Symptoms Cardiovascular: Reports: No Symptoms Musculoskeletal: Reports: Back Pain Skin: Reports: No Symptoms ED EXAM,LOWER BACK PAIN/INJURY - Physical Exam Exam: See Below Exam Limited By: No Limitations General Appearance: Alert, WD/WN, No Apparent Distress Respiratory/Chest: No Respiratory Distress Back Exam: Normal Inspection, Decreased Range of Motion, Muscle Spasm, Paraspinal Tenderness, Vertebral Tenderness. No: Full Range of Motion, CVA Tenderness (R), CVA Tenderness (L) Course - Vital Signs Last Recorded V/S: Last Vital Signs Temp 95.7 F 12/31/16 12:50 Pulse 50 L 12/31/16 14:10 Resp 18 12/31/16 14:10 BP 134/75 12/31/16 14:10 Pulse Ox 85 L 12/31/16 14:10 - Orders/Labs/Meds Meds: Medications Discontinued Medications Generic Name Dose Route Start Last Admin Trade Name Sukhdev PRN Reason Stop Dose Admin Cyclobenzaprine HCl 10 mg 12/31/16 13:37 12/31/16 13:50 Flexeril PO 12/31/16 13:38 10 mg ONETIME ONE Administration Ketorolac Tromethamine 60 mg 12/31/16 13:37 12/31/16 13:50 Toradol IM 12/31/16 13:38 60 mg ONETIME ONE Administration Departure - Departure Time of Disposition: 14:53 Disposition: Home, Self-Care 01 Condition: Fair Clinical Impression: Back pain Qualifiers: Back pain location: low back pain Chronicity: chronic Back pain laterality: midline Sciatica presence: without sciatica Qualified Code(s): M54.5 - Low back pain; G89.29 - Other chronic pain; G89.29 - Other chronic pain - Discharge Information Referrals: PCP,None [Primary Care Provider] - Forms: ED Department Discharge Additional Instructions: Use hydrocodone as needed for breakthrough pain, Please followup with your primary care provider in 3-5 days if not better, please call return to the emergency department with worsening of symptoms. - Assessment/Plan Plan: Assessment Acuity = acute on chronic Site and laterality = low back pain Etiology = secondary to spinal stenosis lumbar region Manifestations = none Location of injury = Home Lab values = none Plan He had good relief from the Dilaudid provided, he will be discharged home with hydrocodone 5/325 one tab by mouth 3 times a day when necessary Patient was in agreement with the plan all questions were answered, they were instructed to return to the emergency department or call for worsening symptoms. This note was dictated using [employer] voice recognition software please call with any questions.
[2016-12-31 14:34] VITALS: BP 134/75
== END 2016-12-31 15:32 | disposition home or self-care (01) ==
LOC: JP.ED 12:39
DX: M48.061 Spinal stenosis, lumbar region without neurogenic claudication (principal); G89.29 Other chronic pain; I12.9 Hypertensive chronic kidney disease with stage 1 through stage 4 chronic kidney disease, or unspecified chronic kidney disease; E11.22 Type 2 diabetes mellitus with diabetic chronic kidney disease; N18.9 Chronic kidney disease, unspecified; I25.10 Atherosclerotic heart disease of native coronary artery without angina pectoris; E78.00 Pure hypercholesterolemia, unspecified; K21.9 Gastro-esophageal reflux disease without esophagitis; Z79.4 Long term (current) use of insulin; Z79.899 Other long term (current) drug therapy; Z88.6 Allergy status to analgesic agent; Z88.8 Allergy status to other drugs, medicaments and biological substances; Z91.018 Allergy to other foods
CPT/HCPCS: 96372; 99284; A9270; J1885

== ENCOUNTER 2018-07-03 08:16 | Emergency (ER) | payer MEDICARE, OTHER ==
--- NOTE | 2018-07-03 09:07 | EDM.PDOC ---
ED HPI GENERAL MEDICAL PROBLEM - General Chief Complaint: Respiratory Problem Stated Complaint: LUNGS HURT, COUGHING Time Seen by Provider: 07/03/18 08:56 Source of Information: Reports: Patient History Limitations: Reports: No Limitations - History of Present Illness INITIAL COMMENTS - FREE TEXT/NARRATIVE: Patient presents because of 4 days of persistent right sided rib and chest wall pain along with worsening of chronic cough. He has ongoing lung conditions and uses inhalers. He has not needed to use any of his inhaled medication today. The pain began earlier this week and is worse if he is lying supine or on his left side. He is taken occasional OTC pain medication for it because symptoms were not improving he came in today. Duration: Day(s): (4) Location: Reports: Chest Quality: Reports: Ache Severity: Mild Improves with: Reports: None Worsens with: Reports: Other (Lying down) - Related Data Allergies Allergy/AdvReac Type Severity Reaction Status Date / Time Lmvteby-Kwa-Tym Reductase Allergy Severe Chest Verified 07/03/18 08:48 Inhibitor Tightness candesartan Allergy Cannot Verified 07/03/18 08:48 Remember finasteride Allergy Cannot Verified 07/03/18 08:48 Remember lisinopril Allergy Confusion Verified 07/03/18 08:48 asparagus AdvReac Other Verified 07/03/18 08:48 aspirin AdvReac Bleeding Verified 07/03/18 08:48 broccoli AdvReac Other Verified 07/03/18 08:48 cauliflower AdvReac Other Verified 07/03/18 08:48 Home Meds: Home Meds Allopurinol [Zyloprim] 300 mg PO DAILY 06/01/14 [History] Colchicine 0.6 mg PO BID PRN 06/01/14 [History] Gabapentin [Neurontin] 400 mg PO QID 06/01/14 [History] Omeprazole [Prilosec] 20 mg PO DAILY 06/01/14 [History] Hypromellose [Artificial Tears] 1 drop EYEBOTH QID 06/03/14 [History] Insulin Aspart [Novolog Flexpen] 10 unit SQ BID 06/03/14 [History] Insulin Glarg,Human.Rec.Analog [Lantus] 30 unit SQ BEDTIME 06/03/14 [History] Polyethylene Glycol 8000 [Polyethylene Glycol] 17 gm PO DAILY 06/03/14 [History] amLODIPine Besylate [Amlodipine Besylate] 10 mg PO BEDTIME 06/03/14 [History] Budesonide/Formoterol [Symbicort 80-4.5 MCG] 2 puff INH DAILY 10/11/15 [History] Dextrose [Glucose] 4 tab PO DAILY PRN 04/12/16 [History] Metoprolol Succinate 100 mg PO DAILY 08/20/16 [History] Tiotropium [Spiriva HandiHaler] 18 mcg INH DAILY 08/20/16 [History] oxyCODONE 5 mg PO BID PRN 01/19/18 [History] Past Medical History HEENT History: Reports: Allergic Rhinitis, Cataract, Impaired Vision, Sinusitis Cardiovascular History: Reports: Bypass, CAD, High Cholesterol, Hypertension, NV Other Cardiovascular History: left above the knee arterial stenosis; multiple NV 's Respiratory History: Reports: Bronchitis, Recurrent, COPD, Pneumonia, Recurrent , Sleep Apnea Other Respiratory History: chronic cough Gastrointestinal History: Reports: Cholelithiasis, GERD Other Gastrointestinal History: umbilical hernia Genitourinary History: Reports: Chronic Renal Insuffiency, Prostate Disorder, Renal Calculus Musculoskeletal History: Reports: Back Pain, Chronic, Fracture, Gout, Osteoarthritis Other Musculoskeletal History: neck fractue Neurological History: Reports: TIA Other Neuro History: neck fracture Endocrine/Metabolic History: Reports: Diabetes, Type II, Obesity/BMI 30+ Hematologic History: Reports: Blood Transfusion(s) Other Hematologic History: chronic leucytic leukemia, chronic lymes Oncologic (Cancer) History: Reports: Basal Cell Carcinoma, Leukemia, Other (See Below) Other Oncologic History: CLL Dermatologic History: Reports: Other (See Below) Other Dermatologic History: skin cancer removal - Infectious Disease History Infectious Disease History: Reports: C-Difficile, Measles, Mumps - Past Surgical History Head Surgeries/Procedures: Reports: None HEENT Surgical History: Reports: Oral Surgery Cardiovascular Surgical History: Reports: Carotid Stents, Coronary Artery Bypass , Percutaneous Transluminal Angioplasty Respiratory Surgical History: Reports: None GI Surgical History: Reports: Appendectomy, Cholecystectomy, Colonoscopy, Hernia , Abdominal Male Surgical History: Reports: Lithotripsy (ESWL), TURP-Transurethral Resection of Prostate, Other (See Below) Other Male Surgeries/Procedures: bladder surgery. bleeding polyps from bladder and prostrate Neurological Surgical History: Reports: C-Spine Oncologic Surgical History: Reports: None Dermatological Surgical History: Reports: Skin Biopsy Social & Family History - Family History Cardiac: Reports: CAD - Tobacco Use Smoking Status *Q: Never Smoker Second Hand Smoke Exposure: No - Caffeine Use Caffeine Use: Reports: Coffee, Soda, Tea Other Caffeine Use: small amount - Recreational Drug Use Recreational Drug Use: No ED ROS GENERAL - Review of Systems Review Of Systems: See Below Constitutional: Reports: No Symptoms Respiratory: Reports: No Symptoms, Shortness of Breath Cardiovascular: Reports: Chest Pain Endocrine: Reports: No Symptoms GI/Abdominal: Reports: No Symptoms : Reports: No Symptoms Musculoskeletal: Reports: Other (Right sided chest pain) ED EXAM, GENERAL - Physical Exam Exam: See Below Free Text/Narrative:: No acute distress. Conversant. Exam Limited By: No Limitations General Appearance: Alert, No Apparent Distress Respiratory/Chest: Crackles Cardiovascular: Regular Rate, Rhythm Extremities: Normal Inspection Course - Vital Signs Text/Narrative:: Patient remained comfortable. His pain is not significant. I returned later to review test results which show a troponin of 18 and a creatinine of 2. I discussed with him that he needs further evaluation of this situation as I believe he is having a non-ST elevation myocardial infarction. We discussed options for transfer and he prefers to go to [facility]. I discussed with hospital staff and cardiology at [facility]. Patient will be given a 4000 unit heparin bolus along with a 1000 unit per hour infusion. He'll also receive aspirin 324 mg chewable and Plavix 600 mg single dose. He'll be given a single dose of Lipitor 80 mg. Apparently he has had myalgias in the past from other statins but at the moment he will be given this medication anyway. Discussed the nature of his condition with patient and his . He'll be transferred by [facility] ambulance. Last Recorded V/S: Last Vital Signs Temp 36.4 C 07/03/18 08:54 Pulse 67 07/03/18 12:10 Resp 10 L 07/03/18 12:10 BP 148/91 H 07/03/18 12:10 Pulse Ox 96 07/03/18 12:10 - Orders/Labs/Meds Orders: Active Orders 24 hr Category Date Time Status EKG Documentation Completion [RC] ASDIRECTED Care 07/03/18 09:18 Ordered Heparin Sodium/D5W [Heparin 25,000 Units in D5W 500 ML] Med 07/03/18 12:15 Ordered 25,000 units in 500 ml IV TITRATE Sodium Chloride 0.9% [Saline Flush] Med 07/03/18 11:51 Ordered 10 ml FLUSH ASDIRECTED PRN Saline Lock Insert [OM.PC] Routine Oth 07/03/18 11:51 Ordered EKG 12 Lead [EK] Routine Ther 07/03/18 09:17 Ordered Medication Orders Heparin Sodium/Dextrose (Heparin 25,000 Units In D5w 500 Ml) 25,000 units in 500 mls @ 2,120 mls/hr IV TITRATE IVRING; Protocol Sodium Chloride (Saline Flush) 10 ml FLUSH ASDIRECTED PRN PRN Reason: Keep Vein Open Last Admin: 07/03/18 11:53 Dose: 10 ml Labs: Laboratory Tests 07/03/18 07/03/18 07/03/18 Range/Units 09:25 09:25 09:25 WBC 10.8 (4.5-11.0) K/uL RBC 4.06 L (4.30-5.90) M/uL Hgb 13.4 (12.0-15.0) g/dL Hct 40.5 (40.0-54.0) % MCV 100 H (80-98) fL MCH 33 H (27-31) pg MCHC 33 (32-36) % Plt Count 327 (150-400) K/uL Neut % (Auto) 51 (36-66) % Lymph % (Auto) 34 (24-44) % Alfalfa % (Auto) 7 H (2-6) % Eos % (Auto) 8 H (2-4) % Baso % (Auto) 1 (0-1) % Sodium 139 L (140-148) mmol/L Potassium 4.7 (3.6-5.2) mmol/L Chloride 106 (100-108) mmol/L Carbon Dioxide 22 (21-32) mmol/L Anion Gap 15.7 H (5.0-14.0) mmol/L BUN 34 H (7-18) mg/dL Creatinine 2.1 H (0.8-1.3) mg/dL Est Cr Clr Drug Dosing 24.46 mL/min Estimated GFR (MDRD) 30 L (>60) Glucose 126 H (74-106) mg/dL Calcium 8.7 (8.5-10.1) mg/dL Troponin I 18.313 H* (0.000-0.056) ng/mL C-Reactive Protein 2.50 H (0.0-0.3) mg/dL Meds: Medications Generic Name Dose Route Start Last Admin Trade Name Favianq PRN Reason Stop Dose Admin Heparin Sodium/Dextrose 25,000 units in 500 mls @ 2,120 mls/hr 07/03/18 12:15 Heparin 25,000 Units In D5w 500 Ml IV TITRATE IRVING Protocol 1,000 UNITS/KG/HR Sodium Chloride 10 ml 07/03/18 11:51 07/03/18 11:53 Saline Flush FLUSH 10 ml ASDIRECTED PRN Administration Keep Vein Open Discontinued Medications Generic Name Dose Route Start Last Admin Trade Name Freq PRN Reason Stop Dose Admin Aspirin 324 mg 07/03/18 12:01 07/03/18 12:11 Aspirin PO 07/03/18 12:02 324 mg ONETIME ONE Administration Atorvastatin Calcium 80 mg 07/03/18 12:08 07/03/18 12:17 Lipitor PO 07/03/18 12:09 80 mg ONETIME ONE Administration Clopidogrel Bisulfate 600 mg 07/03/18 12:06 07/03/18 12:12 Plavix PO 07/03/18 12:07 600 mg ONETIME ONE Administration Heparin Sodium (Porcine) 4,000 units 07/03/18 12:15 Heparin Sodium IVPUSH 07/03/18 12:16 ONETIME ONE Departure - Departure Time of Disposition: 12:05 Disposition: DC/Tfer to Acute Hospital 02 Condition: Good Clinical Impression: NSTEMI (non-ST elevated myocardial infarction) - Discharge Information *PRESCRIPTION DRUG MONITORING PROGRAM REVIEWED*: Not Applicable *COPY OF PRESCRIPTION DRUG MONITORING REPORT IN PATIENT GATITO: Not Applicable Referrals: Mario Kurtz MD [Primary Care Provider] - Forms: Interfacility Transfer EMTALA Additional Instructions: NSTEMI - Problem List & Annotations (1) NSTEMI (non-ST elevated myocardial infarction) SNOMED Code(s): 97300171 Code(s): I21.4 - NON-ST ELEVATION (NSTEMI) MYOCARDIAL INFARCTION Status: Acute Priority: High Current Visit: Yes Onset Date: ~06/30/18 - Problem List Review Problem List Initiated/Reviewed/Updated: Yes - My Orders Last 24 Hours: My Active Orders 07/03/18 09:17 EKG 12 Lead [EK] Routine 07/03/18 09:18 EKG Documentation Completion [RC] ASDIRECTED 07/03/18 11:51 Sodium Chloride 0.9% [Saline Flush] 10 ml FLUSH ASDIRECTED PRN Saline Lock Insert [OM.PC] Routine 07/03/18 12:15 Heparin Sodium/D5W [Heparin 25,000 Units in D5W 500 ML] 25,000 units in 500 ml IV TITRATE - Assessment/Plan Last 24 Hours: My Active Orders 07/03/18 09:17 EKG 12 Lead [EK] Routine 07/03/18 09:18 EKG Documentation Completion [RC] ASDIRECTED 07/03/18 11:51 Sodium Chloride 0.9% [Saline Flush] 10 ml FLUSH ASDIRECTED PRN Saline Lock Insert [OM.PC] Routine 07/03/18 12:15 Heparin Sodium/D5W [Heparin 25,000 Units in D5W 500 ML] 25,000 units in 500 ml IV TITRATE Assessment:: NSTEMI Plan: Transfer to [facility]
--- NOTE | 2018-07-03 10:20 | CRLCR ---
INDICATION: Right chest wall pain and cough for 4 days. TECHNIQUE: PA and lateral. COMPARISON: None. FINDINGS: Shallow inspiration with crowded markings. No obvious infiltrate. No pleural effusion. Heart size at the upper limit of normal. Pulmonary veins normal in caliber. No significant bony abnormality. IMPRESSION: Shallow inspiration with crowded markings. No obvious infiltrate. Dictated by Hermilo Storm MD @ Jul 03 2018 10:15AM Signed by Dr. Hermilo Storm @ Jul 03 2018 10:19AM
[2018-07-03] MEDS ORDERED: Sodium Chloride 0.9% 10 ML Syringe FLUSH PRN (11:51)
[2018-07-03] MEDS ORDERED: Aspirin 81 MG Tab.Chew PO ONE (12:01)
[2018-07-03] MEDS ORDERED: Clopidogrel 75 MG Tab PO ONE (12:06)
[2018-07-03] MEDS ORDERED: atorvaSTATin 20 MG Tab PO ONE (12:08)
[2018-07-03 12:11] VITALS: BP 148/91
[2018-07-03] MEDS ORDERED: Heparin Sodium/D5W 25,000 UNITS/500 ML BAG IV SCH (12:15)
[2018-07-03] MEDS ORDERED: Heparin Sodium 5,000 Units/ML Vial IVPUSH ONE (12:15)
== END 2018-07-03 13:46 ==
LOC: JP.ED 08:16
DX: I21.4 Non-ST elevation (NSTEMI) myocardial infarction (principal); I25.10 Atherosclerotic heart disease of native coronary artery without angina pectoris; E78.00 Pure hypercholesterolemia, unspecified; I25.2 Old myocardial infarction; E11.9 Type 2 diabetes mellitus without complications; Z95.1 Presence of aortocoronary bypass graft; Z88.8 Allergy status to other drugs, medicaments and biological substances; Z79.4 Long term (current) use of insulin; Z79.899 Other long term (current) drug therapy
CPT/HCPCS: 36415; 71046; 80048; 84484; 85025; 86140; 93005; 96374; 96376; 99284; A9270; J1644

== ENCOUNTER 2019-01-27 07:43 | Emergency (ER) | payer MEDICARE, OTHER ==
[2019-01-27 07:47] VITALS: BP 132/71; PULSE 95
--- NOTE | 2019-01-27 08:24 | EDM.PDOC ---
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 This particular event of bleeding started while he was in his sleep unable to get it stopped arrived by EMS this morning nose clamp in place - Related Data Allergies Allergy/AdvReac Type Severity Reaction Status Date / Time [id number] Reductase Allergy Severe Chest Verified 01/27/19 07:50 Inhibitor Tightness candesartan Allergy Cannot Verified 01/27/19 07:50 Remember finasteride Allergy Cannot Verified 01/27/19 07:50 Remember lisinopril Allergy Confusion Verified 01/27/19 07:50 asparagus AdvReac Other Verified 01/27/19 07:50 aspirin AdvReac Bleeding Verified 01/27/19 07:50 broccoli AdvReac Other Verified 01/27/19 07:50 cauliflower AdvReac Other Verified 01/27/19 07:50 Home Meds: Home Meds Allopurinol [Zyloprim] 300 mg PO DAILY 06/01/14 [History] Colchicine 0.6 mg PO BID PRN 06/01/14 [History] Hypromellose [Artificial Tears] 1 drop EYEBOTH QID 06/03/14 [History] Insulin Aspart [Novolog Flexpen] 3 - 4 unit SQ TID 06/03/14 [History] Insulin Glarg,Human.Rec.Analog [Lantus] 13 unit SQ BEDTIME 06/03/14 [History] Polyethylene Glycol 8000 [Polyethylene Glycol] 17 gm PO DAILY 06/03/14 [History] amLODIPine Besylate [Amlodipine Besylate] 10 mg PO BEDTIME 06/03/14 [History] Budesonide/Formoterol [Symbicort 80-4.5 MCG] 2 puff INH DAILY 08/24/16 [History] Dextrose [Glucose] 4 tab PO DAILY PRN 04/12/16 [History] Tiotropium [Spiriva HandiHaler] 18 mcg INH DAILY 08/20/16 [History] Apixaban [Eliquis] 2.5 mg PO BID 01/27/19 [History] Clopidogrel [Plavix] 75 mg PO DAILY 01/27/19 [History] Gabapentin [Neurontin] 100 mg PO BID 01/27/19 [History] Past Medical History HEENT History: Reports: Allergic Rhinitis, Cataract, Impaired Vision, Sinusitis Cardiovascular History: Reports: Aneurysm, Bypass, CAD, High Cholesterol, Hypertension, [place] Other Cardiovascular History: left above the knee arterial stenosis; multiple VA 's Respiratory History: Reports: Bronchitis, Recurrent, COPD, Pneumonia, Recurrent , Sleep Apnea Other Respiratory History: chronic cough Gastrointestinal History: Reports: Cholelithiasis, GERD Other Gastrointestinal History: umbilical hernia Genitourinary History: Reports: Chronic Renal Insuffiency, Prostate Disorder, Renal Calculus Musculoskeletal History: Reports: Back Pain, Chronic, Fracture, Gout, Osteoarthritis Other Musculoskeletal History: neck fractue Neurological History: Reports: TIA Other Neuro History: neck fracture Endocrine/Metabolic History: Reports: Diabetes, Type II, Obesity/BMI 30+ Hematologic History: Reports: Blood Transfusion(s) Other Hematologic History: chronic leucytic leukemia, chronic lymes Oncologic (Cancer) History: Reports: Basal Cell Carcinoma, Leukemia, Other (See Below) Other Oncologic History: CLL Dermatologic History: Reports: Other (See Below) Other Dermatologic History: skin cancer removal - Infectious Disease History Infectious Disease History: Reports: C-Difficile, Herpes, Measles - Past Surgical History Head Surgeries/Procedures: Reports: None HEENT Surgical History: Reports: Oral Surgery Cardiovascular Surgical History: Reports: Carotid Stents, Coronary Artery Bypass , Percutaneous Transluminal Angioplasty Respiratory Surgical History: Reports: None GI Surgical History: Reports: Appendectomy, Cholecystectomy, Colonoscopy, Hernia , Abdominal Male Surgical History: Reports: Lithotripsy (ESWL), TURP-Transurethral Resection of Prostate, Other (See Below) Other Male Surgeries/Procedures: bladder surgery. bleeding polyps from bladder and prostrate Neurological Surgical History: Reports: C-Spine Oncologic Surgical History: Reports: None Dermatological Surgical History: Reports: Skin Biopsy Social & Family History - Family History Cardiac: Reports: CAD - Tobacco Use Smoking Status *Q: Never Smoker - Caffeine Use Caffeine Use: Reports: Coffee Other Caffeine Use: small amount - Recreational Drug Use Recreational Drug Use: No ED ROS ENT - Review of Systems Review Of Systems: See Below Constitutional: Reports: No Symptoms HEENT: Reports: Nosebleed Respiratory: Reports: No Symptoms Cardiovascular: Reports: No Symptoms ED EXAM, ENT - Physical Exam Exam: See Below Text/Narrative:: Examination of the nose there is a large clot in the right naris this was removed with suction I could not appreciate a bleeding site he does have a large clot in the posterior pharynx this was removed with a ring forceps Exam Limited By: No Limitations General Appearance: Alert, Mild Distress ED ENT PROCEDURES - Epistaxis Procedure Indication: Epistaxis Recent anticoagulants/antiplatlets: Yes Uncontrolled HTN: No Recent septal/nasal surgery: Other (see below) (History of septal defect) Site of bleeding: Right Nare Clearing of clots: Patient Blew Nose, Suction Posterior packing: Long Inflatable Nasal Tampon Local Anesthetic Volume: 5cc Complications: No Course - Vital Signs Last Recorded V/S: Last Vital Signs Temp 96.7 F 01/27/19 07:47 Pulse 95 01/27/19 07:47 Resp 16 01/27/19 07:47 BP 132/71 01/27/19 07:47 Pulse Ox 96 01/27/19 07:47 Departure - Departure Time of Disposition: 09:14 Disposition: Home, Self-Care 01 Condition: Fair Clinical Impression: Epistaxis - Discharge Information Instructions: Nosebleed, [id number] Referrals: PCP,None [Primary Care Provider] - Forms: ED Department Discharge Additional Instructions: Please follow-up with your primary care in the next 2 days for reevaluation, call or return to the emergency department worsening of symptoms Sepsis Event Note - Evaluation Sepsis Screening Result: No Definite Risk - Focused Exam Vital Signs: Vital Signs Temp Pulse Resp BP Pulse Ox 01/27/19 07:47 96.7 F 95 16 132/71 96 01/27/19 07:46 96.7 F 95 16 132/71 96 Date Exam was Performed: 01/27/19 Time Exam was Performed: 09:13 - Assessment/Plan Plan: Assessment Acuity = acute Site and laterality = epistaxis right nare Etiology = unknown Manifestations = none Location of injury = Home Lab values = none Plan After balloon was placed bleeding was controlled he will follow-up with his primary care in the next 2 to 3 days for reevaluation This note was dictated using [employer] voice recognition software please call with any questions on syntax or grammar.
== END 2019-01-27 09:30 | disposition home or self-care (01) ==
LOC: JP.ED 07:43
DX: R04.0 Epistaxis (principal); I25.2 Old myocardial infarction; J44.9 Chronic obstructive pulmonary disease, unspecified; I25.10 Atherosclerotic heart disease of native coronary artery without angina pectoris; I12.9 Hypertensive chronic kidney disease with stage 1 through stage 4 chronic kidney disease, or unspecified chronic kidney disease; E11.22 Type 2 diabetes mellitus with diabetic chronic kidney disease; N18.9 Chronic kidney disease, unspecified; E66.9 Obesity, unspecified; Z79.4 Long term (current) use of insulin; Z79.51 Long term (current) use of inhaled steroids; Z79.01 Long term (current) use of anticoagulants; Z79.02 Long term (current) use of antithrombotics/antiplatelets; Z79.899 Other long term (current) drug therapy; Z95.1 Presence of aortocoronary bypass graft; Z68.31 Body mass index [BMI] 31.0-31.9, adult
CPT/HCPCS: 30901; 30905; 99283; 99284-25